=== PATIENT | male | born 1940 | race Caucasian/White ===

== ENCOUNTER 2017-01-21 07:22 | Day surgery (SDC) | payer MEDICARE, OTHER ==
[~2017-01-21 07:22] MED LIST: Ketorolac 30 MG/ML SDV ONE; Lactated Ringers 1,000 ML IV SCH; Lidocaine 2% 5 ML SDV ONE; Midazolam 1 MG/ML 2 ML SDV ONE; Ondansetron 4 MG/2 ML SDV ONE; Propofol 200 MG/20 ML SDV ONE; ceFAZolin 2 GM in Premix Bag 1 BAG IV SCH; diphenhydrAMINE 50 MG/ML SDV ONE; fentaNYL 100 MCG/2 ML SDV ONE
[2017-01-21] MEDS ORDERED: ceFAZolin 1 GM Vial ONE (07:24)
[2017-01-21] MEDS ORDERED: Bupivacaine 0.5% 10 ML SDV ONE (07:24)
[2017-01-21] MEDS ORDERED: fentaNYL 100 MCG/2 ML SDV IVPUSH PRN (07:39)
--- NOTE | 2017-01-21 07:48 | PCM.PREANE ---
Preanesthetic Assessment - Anesthesia/Transfusion/Family Hx Anesthesia History: Prior Anesthesia Without Reaction Family History of Anesthesia Reaction: No Transfusion History: No Prior Transfusion(s) - Review of Systems General: No Symptoms Pulmonary: No Symptoms Cardiovascular: No Symptoms Gastrointestinal: No Symptoms Neurological: No Symptoms Other: Reports: None - Physical Assessment NPO Status Date: 01/20/17 O2 Sat by Pulse Oximetry: 96 Respiratory Rate: 16 Vital Signs: Last Vital Signs Temp 36.3 C 01/21/17 07:45 Pulse 100 01/21/17 07:45 Resp 16 01/21/17 07:45 BP 147/86 H 01/21/17 07:45 Pulse Ox 96 01/21/17 07:45 Height: 1.78 m Weight: 112.945 kg ASA Class: 2 Mental Status: Alert & Oriented x3 Airway Class: Mallampati = 2 Dentition: Reports: Dentures ROM/Head Extension: Full Lungs: Clear to Auscultation, Normal Respiratory Effort Cardiovascular: Regular Rate, Regular Rhythm - Allergies Allergies/Adverse Reactions: Allergies Allergy/AdvReac Type Severity Reaction Status Date / Time No Known Allergies Allergy Verified 01/18/17 13:55 - Anesthesia Plan Pre-Op Medication Ordered: None - Acknowledgements Anesthesia Type Planned: General Anesthesia Pt an Appropriate Candidate for the Planned Anesthesia: Yes Alternatives and Risks of Anesthesia Discussed w Pt/Guardian: Yes Pt/Guardian Understands and Agrees with Anesthesia Plan: Yes Additional Comments: PMH: [place], htn, psoriasis, obesity PreAnesthesia Questionnaire HEENT History: Reports: Hard of Hearing Other HEENT History: top and bottom denture, has hearing aids but does not wear them Cardiovascular History: Reports: Hypertension Gastrointestinal History: Reports: Other (See Below) Other Gastrointestinal History: occasional heartburn Genitourinary History: Reports: BPH Endocrine/Metabolic History: Reports: Obesity/BMI 30+, Other (See Below) Other Endocrine/Metabolic History: "borderline diabetic" Dermatologic History: Reports: Psoriasis - Past Surgical History Head Surgeries/Procedures: Reports: None HEENT Surgical History: Reports: Adenoidectomy, Tonsillectomy GI Surgical History: Reports: Appendectomy, Colonoscopy Musculoskeletal Surgical History: Reports: Other (See Below) Other Musculoskeletal Surgeries/Procedures:: traumatic amputation rt index finger - SUBSTANCE USE Smoking Status *Q: Former Smoker Recreational Drug Use History: No - HOME MEDS Home Medications: Home Meds Aspirin 1 tab PO DAILY 01/18/17 [History] Clobetasol Propionate 1 applic TOP ASDIRECTED PRN 01/18/17 [History] Clobetasol Propionate 1 applic TOP ASDIRECTED PRN 01/18/17 [History] Cranberry Fruit Extract [Cranberry] 200 ml PO BID 01/18/17 [History] Cyanocobalamin (Vitamin B-12) [Vitamin B-12] 1,000 mcg PO DAILY 01/18/17 [ History] Dutasteride [Avodart] 0.5 mg PO DAILY 01/18/17 [History] Losartan [Cozaar] 100 mg PO BEDTIME 01/18/17 [History] Reubens-3S/DHA/Epa/Fish Oil [Reubens-3 Fish Oil 1,000 mg Sfgl] 1 tab PO DAILY [History] Vitamin E Mixed [Vitamin E] 1 tab PO DAILY 01/18/17 [History] amLODIPine [Norvasc] 10 mg PO BEDTIME 01/18/17 [History] - CURRENT (IN HOUSE) MEDS Current Meds: Current Medications Fentanyl (Sublimaze) 50 mcg IVPUSH Q5M PRN PRN Reason: Pain (severe 7-10) Stop: 01/21/17 11:00 Cefazolin Sodium/Dextrose 2 gm (/ Premix) 50 mls @ 100 mls/hr IV ONETIME SHIRIN Lactated Ringer's (Ringers, Lactated) 1,000 mls @ 125 mls/hr IV ASDIRECTED SHIRIN Discontinued Medications Bupivacaine HCl (Sensorcaine-Mpf 0.5%) Confirm Administered Dose 10 ml .ROUTE .STK-MED ONE Stop: 01/21/17 07:25 Cefazolin Sodium (Ancef) Confirm Administered Dose 1 gm .ROUTE .STK-MED ONE Stop: 01/21/17 07:25 Diphenhydramine HCl (Benadryl) Confirm Administered Dose 50 mg .ROUTE .STK-MED ONE Stop: 01/21/17 07:09 Fentanyl (Sublimaze) Confirm Administered Dose 100 mcg .ROUTE .STK-MED ONE Stop: 01/21/17 07:07 Ketorolac Tromethamine (Toradol) Confirm Administered Dose 30 mg .ROUTE .STK- MED ONE Stop: 01/21/17 07:09 Lidocaine (Xylocaine-Mpf 2%) Confirm Administered Dose 5 ml .ROUTE .STK-MED ONE Stop: 01/21/17 07:09 Midazolam HCl (Versed 1 Mg/Ml) Confirm Administered Dose 2 mg .ROUTE .STK-MED ONE Stop: 01/21/17 07:07 Ondansetron HCl (Zofran) Confirm Administered Dose 4 mg .ROUTE .STK-MED ONE Stop: 01/21/17 07:09 Propofol (Diprivan 20 Ml) Confirm Administered Dose 200 mg .ROUTE .STK-MED ONE Stop: 01/21/17 07:07
[2017-01-21] MEDS ORDERED: Rocuronium 10 MG/ML 10 ML Syringe ONE (07:49)
[2017-01-21] MEDS ORDERED: Neostigmine Methylsulfate 1 MG/ML 5 ML Syringe ONE (07:49)
[2017-01-21] MEDS ORDERED: ePHEDrine 50 MG/ML SDV ONE (08:18)
[2017-01-21] MEDS ORDERED: Succinylcholine/Normal Saline 200 MG/10 ML Syringe ONE (08:21)
[2017-01-21] MEDS ORDERED: Ondansetron 4 MG/2 ML SDV IVPUSH PRN (09:22)
[2017-01-21] MEDS ORDERED: Acetaminophen/HYDROcodone 325-5 MG Tab PO PRN (09:22)
[2017-01-21] MEDS ORDERED: Morphine 10 MG/ML Syringe IVPUSH PRN (09:22)
[2017-01-21] MEDS ORDERED: Diltiazem 25 MG/5 ML SDV IVPUSH ONE (09:27)
[2017-01-21] MEDS ORDERED: Lactated Ringers 1,000 ML IV SCH (09:30)
--- NOTE | 2017-01-21 09:30 | PCM.OPNOTE ---
- General Post-Op/Procedure Note Date of Surgery/Procedure: 01/21/17 Operative Procedure(s): Repair incarcerated ventral/umbilical hernia with 8.4 cm Ventralex mesh Pre Op Diagnosis: Incarcerated ventral hernia Post-Op Diagnosis: Incarcerated ventral/umbilical hernia Anesthesia Technique: General ET Tube (ASA II) Primary Surgeon: Zac Ignacio Fluid Replacement, Intraop: 1,000 EBL in mLs: 5 Condition: Good Free Text/Narrative:: Dictation [id number] CPT CODE 07375/[id number]
--- NOTE | 2017-01-21 09:41 | OR ---
SURGEON: Zac Ignacio M.D. DATE OF PROCEDURE: 01/21/2017 OPERATION PERFORMED: Repair of incarcerated ventral hernia with 8.4 cm Ventralex mesh. ANESTHESIA: General endotracheal. ASA CLASSIFICATION: II. PREOPERATIVE DIAGNOSIS: Incarcerated umbilical/ventral hernia. POSTOPERATIVE DIAGNOSIS: Incarcerated umbilical/ventral hernia. ESTIMATED BLOOD LOSS: 5 mL. INTRAOPERATIVE FLUID REPLACEMENT: 1000 mL of crystalloid. DESCRIPTION OF PROCEDURE: The patient was taken to the operating room and placed on the operating table in the supine position. Time-out was called for appropriate identification of the patient and procedure. Thigh-high TEDs and sequential compression boots were placed. Following satisfactory attainment of general endotracheal anesthesia, the abdomen was prepped with DuraPrep solution. Sterile drapes were applied. Skin incision was marked out extending through the midline directly through the umbilicus. Using electrocautery, the incision was deepened into the subcutaneous space. There was a very large ventral defect. Once the adhesions were cleared from this area for at least 2 cm circumferentially, an 8.4 cm Ventralex mesh was brought to the operating table. This was soaked in 1% Ancef solution. The mesh was then placed in an underlay technique and secured to the overlying fascia with interrupted horizontal mattress 0 Ethibond sutures. All sutures were placed under direct vision and held with hemostats. After all other sutures had been placed, they were secured. The patient was given a Valsalva maneuver to 40 cm of water and the repair was solid. The wound was inspected for hemostasis and small bleeding sites were electrocoagulated. The wound was again irrigated with 1% Ancef solution. All fluid was aspirated. I was able to reapproximate the fascia over the mesh with running 0 Vicryl. The subcutaneous tissue was reapproximated with running 3-0 Vicryl. The skin was closed with subcuticular 4-0 Monocryl, reinforced with Steri-Strips. The wound was dressed with a sterile Tegaderm pad. Sponge, needle, and instrument counts were all correct. The patient tolerated the procedure well. Following emergence from anesthesia and extubation, he was taken to recovery room in stable condition. YOSELYN / MICHAEL /[id number]
--- NOTE | 2017-01-21 10:09 | PCM.SN ---
- Free Text/Narrative Note: developed afib with rapid response 130s in OR, asymptomatic. No hx of prior afib or episodes of palpitations. No documentation of NSR this am but rate was 100 and reg to ausc. Cardizem given in PACU with decrease in rate from 135 to 85-90. Consulted wire rope sales representative. Sent for TTE at 11am. Cardiology will see hum after echo to determine admission vs discharge, and cardioversion vs meds.
--- NOTE | 2017-01-21 10:14 | PCM.POSTAN ---
POST ANESTHESIA ASSESSMENT - MENTAL STATUS Mental Status: Alert, Oriented - RESPIRATORY Respiratory Status: Respiratory Rate WNL, Airway Patent, O2 Saturation Stable - CARDIOVASCULAR CV Status: Elevated Pulse Rate (see post op simple note for management of afib) - GASTROINTESTINAL GI Status: No Symptoms - POST OP HYDRATION Hydration Status: Adequate & Stable
--- NOTE | 2017-01-21 10:39 | PCM48HPAN ---
Post Anesthesia Note - EVALUATION WITHIN 48HRS OF ANESTHETIC Vital Signs in Normal Range: Yes Patient Participated in Evaluation: Yes Respiratory Function Stable: Yes Airway Patent: Yes Cardiovascular Function Stable: No (rate controlled afib, leaving PACU for echo , then will see environmental health technician laxmi) Hydration Status Stable: Yes Pain Control Satisfactory: Yes Nausea and Vomiting Control Satisfactory: Yes Mental Status Recovered: Yes
[2017-01-21 13:09] LABS: CHLORIDE,CL 106 mmol/L (98-110); SODIUM,NA 141 mmol/L (136-146)
--- NOTE | 2017-01-21 14:35 | PCM.SN ---
- Free Text/Narrative Note: Patient is impatient to be released to home. Awaiting Dr. 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 He will then be discharged to home.
--- NOTE | 2017-01-21 14:36 | PCM48HPAN ---
Post Anesthesia Note - EVALUATION WITHIN 48HRS OF ANESTHETIC Vital Signs in Normal Range: Yes Patient Participated in Evaluation: Yes Respiratory Function Stable: Yes Airway Patent: Yes Cardiovascular Function Stable: Yes Hydration Status Stable: Yes Pain Control Satisfactory: Yes Nausea and Vomiting Control Satisfactory: Yes Mental Status Recovered: Yes - COMMENTS/OBSERVATIONS Free Text/Narrative:: Dr. Kenney (graphics coordinator ) did see patient.
--- NOTE | 2017-01-21 16:32 | CONS ---
DATE OF CONSULTATION: DATE OF : 1940 PRIMARY CARE PHYSICIAN: Vadim Romero M.D. REASON FOR CONSULTATION: Atrial fibrillation. HISTORY OF PRESENT ILLNESS: This is a 76-year-old male with a history of former smoker as well as hypertension, hyperlipidemia, who presented to the hospital at this time for an umbilical hernia. There was no EKG done prior to this surgery. However, when the surgery was completed and he was in the recovery room, he was found to have an atrial fibrillation, Cardizem was given, and the heart rate seemed to be better controlled. It is still unclear if he was in atrial fibrillation prior to the surgery. However, when he was in the recovery room, when he was in the atrial fibrillation, he did not feel heart raising, abnormal heart beat, shortness of breath, chest pain or dizziness, he feels about the same. He never had a history of a heart attack, CAD, or atrial fibrillation. He is a lundy. He did not have any shortness of breath, leg swelling, orthopnea, or PND. No upcoming surgery. PAST MEDICAL HISTORY: Including hypertension, hyperlipidemia. SOCIAL HISTORY: Occasionally drinks. No drugs. Former smoker. FAMILY HISTORY: No family history of CAD. ALLERGIES: No known drug allergies. PHYSICAL EXAMINATION: VITAL SIGNS: Blood pressure is 145/72, heart rate of 70 to 80, O2 saturation 96% on room air, respirations 17. HEENT: No pallor. No jaundice. No JVD. HEART: Normal S1, S2, totally irregular. LUNGS: Clear. ABDOMEN: Soft, nontender. Bowel sounds are present. No hepatosplenomegaly. LABORATORY DATA: CBC showed WBC 13, hematocrit 42, and platelets 202. Sodium 141, potassium 3.6, chloride 106, bicarb 26, BUN 18, creatinine 1.0, glucose 122, troponin is less than 0.1. EKG shows atrial fibrillation, heart rate of 83, and QRS duration 94. ASSESSMENT AND PLAN: This is a 76-year-old male with a history of hypertension, former smoker, postop day 0 for umbilical hernia repair, was found to have an atrial fibrillation, unknown onset. He is not symptomatic for atrial fibrillation as well. It is still unclear that an atrial fibrillation started recently and we did not have any EKG that confirmed he was sinus prior to the surgery and I would probably start him on anticoagulation because his Cornelio Vasc score is 2 at least and I talked to the surgeon that anticoagulation can be started tomorrow. I will also give him the Toprol-XL to control his heart rate. Echocardiogram was ordered and I will see him again in the next 2 weeks. Currently, he seems to be okay and he denies symptoms of shortness of breath, leg swelling, orthopnea, or PND. He is not in heart failure on my exam and I will see him in the clinic in 2 weeks. SONIDO RODRIGUEZ /[id number]
--- NOTE | 2017-01-26 13:36 | ECHO ---
EXAM DATE: 01/21/17 PATIENT'S AGE: 76 The echocardiogram report can be seen in this patient's EMR (Electronic Medical Record) in the Reports section. The report has also been scanned into PACs. YANCY
== END 2017-01-21 14:40 | disposition home or self-care (01) ==
LOC: MW.SDS 07:22
PROVIDERS: ATTEND Surgery
DX: K43.6 Other and unspecified ventral hernia with obstruction, without gangrene (principal); I10 Essential (primary) hypertension; E78.5 Hyperlipidemia, unspecified; E66.9 Obesity, unspecified; L40.9 Psoriasis, unspecified; I48.91 Unspecified atrial fibrillation; Z88.8 Allergy status to other drugs, medicaments and biological substances; Z87.891 Personal history of nicotine dependence; Z68.30 Body mass index [BMI] 30.0-30.9, adult; Z90.89 Acquired absence of other organs; Z90.49 Acquired absence of other specified parts of digestive tract; Z79.82 Long term (current) use of aspirin
CPT/HCPCS: 36415; 49561; 49568; 80053; 84484; 85027; 93005; 93306; J0690; J1200; J1885; J2250; J2405; J3010; J7120; 00832; C1781; J2704

== ENCOUNTER 2018-04-20 09:41 | Observation (INO) | payer MEDICARE, OTHER ==
[2018-04-20] MEDS ORDERED: Sodium Chloride 0.9% 10 ML Syringe FLUSH PRN (10:11)
[2018-04-20] MEDS ORDERED: Sodium Chloride 0.9% 2.5 ML Syringe FLUSH PRN (10:11)
--- NOTE | 2018-04-20 10:25 | EDM.PDOC ---
ED HPI GENERAL MEDICAL PROBLEM - General Chief Complaint: Respiratory Problem Stated Complaint: SHORTNESS OF BREATH Time Seen by Provider: 04/20/18 10:23 Source of Information: Reports: Patient - History of Present Illness INITIAL COMMENTS - FREE TEXT/NARRATIVE: HISTORY AND PHYSICAL: History of present illness: Patient is a 78-year-old male here with complaint of shortness of breath. He states he was seeing his Dr. Rascon this morning for SOB, was found to have fluid in the left lung and sent to the ED to have it drained. He states he feels like he can't get full breath in. He denies chest pain, cough, fevers, chills, nausea, vomiting, abdominal pain. History of atrial fibrillation with RVR. He states he no longer takes his plavix. Hasn't take his blood pressure medication in a couple of days. Oxygen saturation around 92-94% on room air. Review of systems: As per history of present illness and below otherwise all systems reviewed and negative. Past medical history: As per history of present illness and as reviewed below otherwise noncontributory. Surgical history: As per history of present illness and as reviewed below otherwise noncontributory. Social history: No reported history of drug or alcohol abuse. Family history: As per history of present illness and as reviewed below otherwise noncontributory. Physical exam: General: Patient sitting comfortably in no acute distress and nontoxic appearing HEENT: Atraumatic, normocephalic, pupils reactive, negative for conjunctival pallor or scleral icterus, mucous membranes moist, throat clear, neck supple, nontender, trachea midline. No meningeal signs. Lungs: Diminished throughout all lung eldridge, chest nontender. Heart: S1S2, irregular, negative for clicks, rubs, or overt murmur. Abdomen: Soft, nondistended, nontender. Negative for masses or hepatosplenomegaly. Negative for costovertebral tenderness. No rigidity, rebound , guarding. Pelvis: Stable nontender. Genitourinary: Deferred. Rectal: Deferred. Extremities: Atraumatic, negative for cords or calf pain. Neurovascular unremarkable. Neuro: Awake, alert, oriented. Cranial nerves II through XII unremarkable. Cerebellum unremarkable. Motor and sensory unremarkable throughout. Exam nonfocal. Notes: Diagnostics: CBC, CMP, EKG EKG shows atrial fibrillation with RVR CXR from [place] shows "confluent opacification of the lower left hemithorax suggesting the presence of a moderate to large left effusion with possible underlying left lower lobe pneumonia vs atelectasis." Therapeutics: Cardizem 25mg IV 1g Rocephin IV 250mg Azithromycin IV Prescriptions: Impression: Dyspnea, left pulmonary effusion, pneumonia, atrial fibrillation with RVR Plan: Discussed with Dr. Mcdonald, patient will be admitted to observation on telemetry and IV antibiotics. Definitive disposition and diagnosis as appropriate pending reevaluation and review of above. - Related Data Allergies Allergy/AdvReac Type Severity Reaction Status Date / Time No Known Allergies Allergy Verified 04/20/18 09:57 Home Meds: Home Meds . [Unable to Verify Home Med List] 04/20/18 [History] Past Medical History HEENT History: Reports: Hard of Hearing Other HEENT History: top and bottom denture, has hearing aids but does not wear them Cardiovascular History: Reports: Hypertension Gastrointestinal History: Reports: Other (See Below) Other Gastrointestinal History: occasional heartburn Genitourinary History: Reports: BPH Endocrine/Metabolic History: Reports: Obesity/BMI 30+, Other (See Below) Other Endocrine/Metabolic History: "borderline diabetic" Dermatologic History: Reports: Psoriasis - Past Surgical History Head Surgeries/Procedures: Reports: None HEENT Surgical History: Reports: Adenoidectomy, Tonsillectomy GI Surgical History: Reports: Appendectomy, Colonoscopy Musculoskeletal Surgical History: Reports: Other (See Below) Other Musculoskeletal Surgeries/Procedures:: traumatic amputation rt index finger Social & Family History - Family History Family Medical History: Noncontributory - Tobacco Use Smoking Status *Q: Never Smoker - Recreational Drug Use Recreational Drug Use: No ED ROS GENERAL - Review of Systems Review Of Systems: ROS reveals no pertinent complaints other than HPI. ED EXAM, GENERAL - Physical Exam Exam: See Below (see dictation) Course - Vital Signs Last Recorded V/S: Last Vital Signs Temp 98.2 F 04/20/18 09:51 Pulse 77 04/20/18 11:15 Resp 18 04/20/18 11:15 BP 145/88 H 04/20/18 11:15 Pulse Ox 98 04/20/18 11:15 - Orders/Labs/Meds Orders: Active Orders 24 hr Category Date Time Status Cardiac Monitoring [RC] . DIRECTED Care 04/20/18 10:11 Active EKG Documentation Completion [RC] STAT Care 04/20/18 10:12 Active Sodium Chloride 0.9% [Saline Flush] Med 04/20/18 10:11 Active 10 ml FLUSH ASDIRECTED PRN Sodium Chloride 0.9% [Saline Flush] Med 04/20/18 10:11 Active 2.5 ml FLUSH ASDIRECTED PRN Saline Lock Insert [OM.PC] Stat Oth 04/20/18 10:11 Ordered Medication Orders Sodium Chloride (Saline Flush) 10 ml FLUSH ASDIRECTED PRN PRN Reason: Keep Vein Open Last Admin: 04/20/18 10:42 Dose: 10 ml Sodium Chloride (Saline Flush) 2.5 ml FLUSH ASDIRECTED PRN PRN Reason: Keep Vein Open Last Admin: 04/20/18 10:42 Dose: 2.5 ml Labs: Laboratory Tests 04/20/18 04/20/18 04/20/18 Range/Units 10:30 10:30 10:30 WBC 11.22 H (4.0-11.0) K/uL RBC 5.13 (4.50-5.90) M/uL Hgb 15.8 (13.0-17.0) g/dL Hct 47.3 (38.0-50.0) % MCV 92.2 (80.0-98.0) fL MCH 30.8 (27.0-32.0) pg MCHC 33.4 (31.0-37.0) g/dL RDW Std Deviation 44.9 (28.0-62.0) fl RDW Coeff of Yara 14 (11.0-15.0) % Plt Count 221 (150-400) K/uL MPV 10.70 (7.40-12.00) fL Neut % (Auto) 82.9 H (48.0-80.0) % Lymph % (Auto) 7.8 L (16.0-40.0) % Tyrrell % (Auto) 8.2 (0.0-15.0) % Eos % (Auto) 0.8 (0.0-7.0) % Baso % (Auto) 0.3 (0.0-1.5) % Neut # (Auto) 9.3 H (1.4-5.7) K/uL Lymph # (Auto) 0.9 (0.6-2.4) K/uL Tyrrell # (Auto) 0.9 H (0.0-0.8) K/uL Eos # (Auto) 0.1 (0.0-0.7) K/uL Baso # (Auto) 0.0 (0.0-0.1) K/uL INR 1.07 Sodium 139 (136-148) mmol/L Potassium 3.5 (3.5-5.1) mmol/L Chloride 102 (98-107) mmol/L Carbon Dioxide 29.2 (21.0-32.0) mmol/L BUN 27 H (7.0-18.0) mg/dL Creatinine 1.1 (0.8-1.3) mg/dL Est Cr Clr Drug Dosing 60.85 mL/min Estimated GFR (MDRD) > 60.0 ml/min Glucose 132 H (74-106) mg/dL Calcium 9.4 (8.5-10.1) mg/dL Total Bilirubin 0.9 (0.2-1.0) mg/dL AST 36 (15-37) IU/L ALT 25 (14-63) IU/L Alkaline Phosphatase 119 H (46-116) U/L Total Protein 6.8 (6.4-8.2) g/dL Albumin 3.0 L (3.4-5.0) g/dL Globulin 3.8 (2.6-4.0) g/dL Albumin/Globulin Ratio 0.8 L (0.9-1.6) Meds: Medications Generic Name Dose Route Start Last Admin Trade Name Freq PRN Reason Stop Dose Admin Sodium Chloride 10 ml 04/20/18 10:11 04/20/18 10:42 Saline Flush FLUSH 10 ml ASDIRECTED PRN Administration Keep Vein Open Sodium Chloride 2.5 ml 04/20/18 10:11 04/20/18 10:42 Saline Flush FLUSH 2.5 ml ASDIRECTED PRN Administration Keep Vein Open Discontinued Medications Generic Name Dose Route Start Last Admin Trade Name Freq PRN Reason Stop Dose Admin Diltiazem HCl 25 mg 04/20/18 10:33 04/20/18 10:42 Diltiazem IVPUSH 04/20/18 10:34 25 mg ONETIME ONE Administration Departure - Departure Time of Disposition: 11:44 Disposition: Refer to Observation Condition: Good Clinical Impression: Pneumonia, Atrial fibrillation, Dyspnea - Discharge Information Referrals: PCP,Unknown [Primary Care Provider] - Forms: ED Department Discharge - My Orders Last 24 Hours: My Active Orders 04/20/18 10:11 Cardiac Monitoring [RC] . DIRECTED Sodium Chloride 0.9% [Saline Flush] 10 ml FLUSH ASDIRECTED PRN Sodium Chloride 0.9% [Saline Flush] 2.5 ml FLUSH ASDIRECTED PRN Saline Lock Insert [OM.PC] Stat 04/20/18 10:12 EKG Documentation Completion [RC] STAT - Assessment/Plan Last 24 Hours: My Active Orders 04/20/18 10:11 Cardiac Monitoring [RC] . DIRECTED Sodium Chloride 0.9% [Saline Flush] 10 ml FLUSH ASDIRECTED PRN Sodium Chloride 0.9% [Saline Flush] 2.5 ml FLUSH ASDIRECTED PRN Saline Lock Insert [OM.PC] Stat 04/20/18 10:12 EKG Documentation Completion [RC] STAT
[2018-04-20] MEDS ORDERED: Diltiazem 25 MG/5 ML SDV IVPUSH ONE (10:33)
[2018-04-20 11:17] LABS: CHLORIDE,CL 102 mmol/L (98-107); SODIUM,NA 139 mmol/L (136-148)
[2018-04-20] MEDS ORDERED: cefTRIAXone 1 GM in Premix Bag 1 BAG IV ONE (11:42)
[2018-04-20] MEDS ORDERED: Azithromycin 250 MG in Sodium Chloride 0.9% 250 ML IV ONE ×2 (11:42→13:45)
--- NOTE | 2018-04-20 13:05 | PCM.HP ---
H&P History of Present Illness - General Date of Service: 04/20/18 Admit Problem/Dx: Admission Diagnosis/Problem Admission Diagnosis/Problem Pneumonia Source of Information: Patient, Old Records ([facility] clinic notes) History Limitations: Reports: No Limitations - History of Present Illness Initial Comments - Free Text/Narative: This 78 year old male with pmh of HTN, afib, hyperlipidemia, and prediabetes presented to the ED from [facility] with concerns of shortness of breath and not feeling well. CXR was obtained at the clinic, which revealed a new moderate to large pleural effusion and possible pneumonia and new cardiomegaly. He reports he has been short of breath and not feeling well with subjective fevers for a good 2 weeks. Denies productive cough. Denies palpitations or chest pain. He reports some sinus congestion and malaise. He reports he stopped taking his BP medications because he started feeling worse the last few days. He denies abdominal pain or urinary concerns and no neurological complaints. He denies leg swelling or history of CHF. He reports he used to smoke and drink heavily, but quit 30+ years ago. Rare alcohol use now and no tobacco use. 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 In the ED, mild leukocytosis noted at 11,220. BUN 27 and Cr 1.1. EKG revealed afib RVR, he was given Diltiazem 25 mg IV, HR returned to 70s and BP lowerd to 140s SBP. It was 170/110s on arrival to ED. He is on 2 L NC sating 98%. He was given Azithromycin and Rocephin for CAP and admitted observation for CAP and shortness of breath with pleural effusion. PCP, Dr Vadim Romero. - Related Data Allergies/Adverse Reactions: Allergies Allergy/AdvReac Type Severity Reaction Status Date / Time No Known Allergies Allergy Verified 04/20/18 09:57 Home Medications: Home Meds Albuterol [Proventil Neb Soln] 1 dose INH ASDIRECTED 04/20/18 [History] Aspirin [Aspirin EC] 325 mg PO DAILY 04/20/18 [History] Betamethasone Dipropionate [Diprosone 0.05% Crm] 1 dose TOP ASDIRECTED 04/20/18 [History] Cyanocobalamin (Vitamin B-12) [Cyanocobalamin] 1,000 mcg PO DAILY 04/20/18 [ History] Dutasteride [Avodart] 0.5 cap PO DAILY 04/20/18 [History] Losartan [Cozaar] 100 mg PO DAILY 04/20/18 [History] Multivit #34/FA/Nadh/Ubiquinon [Mebolic Tablet] 1 tab PO DAILY 04/20/18 [History ] Lovely-3 Fatty Acids [Lovely-3] 1 tab PO DAILY 04/20/18 [History] Tamsulosin [Flomax] 0.4 mg PO DAILY 04/20/18 [History] Zoster Vaccine Live [Zostavax] 1 dose SUBCUT ASDIRECTED 04/20/18 [History] amLODIPine [Norvasc] 10 mg PO DAILY 04/20/18 [History] Past Medical History HEENT History: Reports: Hard of Hearing Other HEENT History: top and bottom denture, has hearing aids but does not wear them Cardiovascular History: Reports: Afib, High Cholesterol, Hypertension. Denies: Blood Clots/VTE/DVT, OR, Stents Respiratory History: Reports: None. Denies: Asthma, COPD Gastrointestinal History: Reports: Other (See Below). Denies: GERD, GI Bleed Other Gastrointestinal History: occasional heartburn Genitourinary History: Reports: BPH Musculoskeletal History: Reports: None Neurological History: Reports: None. Denies: CVA, TIA Psychiatric History: Reports: None Endocrine/Metabolic History: Reports: Obesity/BMI 30+, Other (See Below) Other Endocrine/Metabolic History: "borderline diabetic" Hematologic History: Reports: Anticoagulation Therapy (has tried three in the past for Afib, but can not tolerate any. Takes ASA daily) Dermatologic History: Reports: Psoriasis - Past Surgical History Head Surgeries/Procedures: Reports: None HEENT Surgical History: Reports: Adenoidectomy, Tonsillectomy GI Surgical History: Reports: Appendectomy, Colonoscopy Musculoskeletal Surgical History: Reports: Other (See Below) Other Musculoskeletal Surgeries/Procedures:: traumatic amputation rt index finger Social & Family History - Family History Family Medical History: Noncontributory - Tobacco Use Smoking Status *Q: Former Smoker Tobacco Use Comment: quit 30+ years ago - Caffeine Use Caffeine Use: Reports: Coffee - Alcohol Use Alcohol Use History: No Alcohol Use Frequency: Rarely - Recreational Drug Use Recreational Drug Use: No - Living Situation & Occupation Living situation: Reports: Occupation: Retired (has [email or web address] and [employer]) H&P Review of Systems - Review of Systems: Review Of Systems: See Below General: Reports: Fever (subjective at home, never actually measured), Fatigue HEENT: Reports: Sinus Congestion. Denies: Ear Pain, Hearing Changes, Visual Changes Pulmonary: Reports: Shortness of Breath, Cough. Denies: Pleuritic Chest Pain, Sputum Cardiovascular: Reports: Dyspnea on Exertion. Denies: Chest Pain, Palpitations , Edema Gastrointestinal: Reports: No Symptoms. Denies: Abdominal Pain, Black Stool, Bloody Stool, Nausea, Vomiting Genitourinary: Reports: No Symptoms. Denies: Dysuria, Frequency, Burning Musculoskeletal: Reports: No Symptoms Skin: Reports: No Symptoms Psychiatric: Reports: No Symptoms Neurological: Reports: No Symptoms Hematologic/Lymphatic: Reports: No Symptoms Immunologic: Reports: No Symptoms Exam - Exam Exam: See Below - Vital Signs Vital Signs: Last Vital Signs Temp 98.2 F 04/20/18 09:51 Pulse 77 04/20/18 11:15 Resp 18 04/20/18 11:15 BP 145/88 H 04/20/18 11:15 Pulse Ox 98 04/20/18 11:15 Weight: 114.804 kg - Exam General: Alert, Oriented, Cooperative HEENT: Conjunctiva Clear, Mucosa Moist & [place], Posterior Pharynx Clear Neck: Supple, Trachea Midline Lungs: Decreased Breath Sounds (L base). No: Normal Respiratory Effort ( dyspneic with speech), Wheezing Cardiovascular: Regular Rate, Normal S1, Normal S2, Irregular Rhythm. No: Tachycardia, Systolic Murmur GI/Abdominal Exam: Normal Bowel Sounds, Soft, Non-Tender, Other (obese abdomen limits assessment) Back Exam: Normal Inspection, Full Range of Motion Extremities: Normal Inspection, Normal Range of Motion, Non-Tender, No Pedal Edema Neurological: Cranial Nerves Intact Neuro Extensive - Mental Status: Alert, Oriented x3 Neuro Extensive - Motor, Sensory, Reflexes: CN II-XII Intact, Normal Gait Psychiatric: Alert, Normal Affect, Normal Mood - Patient Data Lab Results Last 24 hrs: Laboratory Results - last 24 hr 04/20/18 04/20/18 04/20/18 Range/Units 10:30 10:30 10:30 WBC 11.22 H (4.0-11.0) K/uL RBC 5.13 (4.50-5.90) M/uL Hgb 15.8 (13.0-17.0) g/dL Hct 47.3 (38.0-50.0) % MCV 92.2 (80.0-98.0) fL MCH 30.8 (27.0-32.0) pg MCHC 33.4 (31.0-37.0) g/dL RDW Std Deviation 44.9 (28.0-62.0) fl RDW Coeff of Yara 14 (11.0-15.0) % Plt Count 221 (150-400) K/uL MPV 10.70 (7.40-12.00) fL Neut % (Auto) 82.9 H (48.0-80.0) % Lymph % (Auto) 7.8 L (16.0-40.0) % [place] % (Auto) 8.2 (0.0-15.0) % Eos % (Auto) 0.8 (0.0-7.0) % Baso % (Auto) 0.3 (0.0-1.5) % Neut # (Auto) 9.3 H (1.4-5.7) K/uL Lymph # (Auto) 0.9 (0.6-2.4) K/uL [place] # (Auto) 0.9 H (0.0-0.8) K/uL Eos # (Auto) 0.1 (0.0-0.7) K/uL Baso # (Auto) 0.0 (0.0-0.1) K/uL INR 1.07 Sodium 139 (136-148) mmol/L Potassium 3.5 (3.5-5.1) mmol/L Chloride 102 (98-107) mmol/L Carbon Dioxide 29.2 (21.0-32.0) mmol/L BUN 27 H (7.0-18.0) mg/dL Creatinine 1.1 (0.8-1.3) mg/dL Est Cr Clr Drug Dosing 60.85 mL/min Estimated GFR (MDRD) > 60.0 ml/min Glucose 132 H (74-106) mg/dL Calcium 9.4 (8.5-10.1) mg/dL Magnesium (1.8-2.4) mg/dL Total Bilirubin 0.9 (0.2-1.0) mg/dL AST 36 (15-37) IU/L ALT 25 (14-63) IU/L Alkaline Phosphatase 119 H (46-116) U/L Total Protein 6.8 (6.4-8.2) g/dL Albumin 3.0 L (3.4-5.0) g/dL Globulin 3.8 (2.6-4.0) g/dL Albumin/Globulin Ratio 0.8 L (0.9-1.6) 04/20/18 Range/Units 10:30 WBC (4.0-11.0) K/uL RBC (4.50-5.90) M/uL Hgb (13.0-17.0) g/dL Hct (38.0-50.0) % MCV (80.0-98.0) fL MCH (27.0-32.0) pg MCHC (31.0-37.0) g/dL RDW Std Deviation (28.0-62.0) fl RDW Coeff of Yara (11.0-15.0) % Plt Count (150-400) K/uL MPV (7.40-12.00) fL Neut % (Auto) (48.0-80.0) % Lymph % (Auto) (16.0-40.0) % [place] % (Auto) (0.0-15.0) % Eos % (Auto) (0.0-7.0) % Baso % (Auto) (0.0-1.5) % Neut # (Auto) (1.4-5.7) K/uL Lymph # (Auto) (0.6-2.4) K/uL [place] # (Auto) (0.0-0.8) K/uL Eos # (Auto) (0.0-0.7) K/uL Baso # (Auto) (0.0-0.1) K/uL INR Sodium (136-148) mmol/L Potassium (3.5-5.1) mmol/L Chloride (98-107) mmol/L Carbon Dioxide (21.0-32.0) mmol/L BUN (7.0-18.0) mg/dL Creatinine (0.8-1.3) mg/dL Est Cr Clr Drug Dosing mL/min Estimated GFR (MDRD) ml/min Glucose (74-106) mg/dL Calcium (8.5-10.1) mg/dL Magnesium 2.0 (1.8-2.4) mg/dL Total Bilirubin (0.2-1.0) mg/dL AST (15-37) IU/L ALT (14-63) IU/L Alkaline Phosphatase (46-116) U/L Total Protein (6.4-8.2) g/dL Albumin (3.4-5.0) g/dL Globulin (2.6-4.0) g/dL Albumin/Globulin Ratio (0.9-1.6) Result Diagrams: 04/20/18 10:30 04/20/18 10:30 EKG INTERPRETATION EKG Date: 04/20/18 Rhythm: A-Fib Rate (Beats/Min): 110 P-Wave: Absent QRS: Normal ST-T: Normal QT: Normal - Problem List (1) Pneumonia SNOMED Code(s): 136227805 ICD Code: J18.9 - PNEUMONIA, UNSPECIFIED ORGANISM Status: Acute Current Visit: Yes Qualifiers: Pneumonia type: due to unspecified organism Laterality: left Lung location: lower lobe of lung Qualified Code(s): J18.1 - Lobar pneumonia, unspecified organism (2) Atrial fibrillation SNOMED Code(s): 33270614 ICD Code: I48.91 - UNSPECIFIED ATRIAL FIBRILLATION Status: Chronic Current Visit: Yes Qualifiers: Atrial fibrillation type: persistent Qualified Code(s): I48.1 - Persistent atrial fibrillation (3) Dyspnea SNOMED Code(s): 489464988 ICD Code: R06.00 - DYSPNEA, UNSPECIFIED Status: Chronic Current Visit: Yes Qualifiers: Dyspnea type: shortness of breath Qualified Code(s): R06.02 - Shortness of breath; R06.00 - Dyspnea, unspecified; R06.01 - Orthopnea (4) Pleural effusion SNOMED Code(s): 85314056 ICD Code: J90 - PLEURAL EFFUSION, NOT ELSEWHERE CLASSIFIED Status: Acute Current Visit: Yes (5) Cardiomegaly SNOMED Code(s): 9928243 ICD Code: I51.7 - CARDIOMEGALY Status: Acute Current Visit: Yes (6) HTN (hypertension) SNOMED Code(s): 91568496 ICD Code: I10 - ESSENTIAL (PRIMARY) HYPERTENSION Status: Chronic Current Visit: Yes Qualifiers: Hypertension type: essential hypertension Qualified Code(s): I10 - Essential (primary) hypertension (7) Pre-diabetes SNOMED Code(s): 825870995 ICD Code: R73.03 - PREDIABETES Status: Chronic Current Visit: Yes (8) Hyperlipidemia SNOMED Code(s): 31578154 ICD Code: E78.5 - HYPERLIPIDEMIA, UNSPECIFIED Status: Chronic Current Visit: Yes (9) BPH (benign prostatic hyperplasia) SNOMED Code(s): 399755238 ICD Code: N40.0 - BENIGN PROSTATIC HYPERPLASIA WITHOUT LOWER URINRY TRACT SYMP Status: Chronic Current Visit: Yes Problem List Initiated/Reviewed/Updated: Yes Orders Last 24hrs: Active Orders 24 hr Category Date Time Status Admission Status [Patient Status] [ADT] Stat ADT 04/20/18 11:45 Active Cardiac Monitoring [RC] . DIRECTED Care 04/20/18 10:11 Active Sodium Chloride 0.9% [Saline Flush] Med 04/20/18 10:11 Active 10 ml FLUSH ASDIRECTED PRN Sodium Chloride 0.9% [Saline Flush] Med 04/20/18 10:11 Active 2.5 ml FLUSH ASDIRECTED PRN Saline Lock Insert [OM.PC] Stat Oth 04/20/18 10:11 Ordered Medication Orders Sodium Chloride (Saline Flush) 10 ml FLUSH ASDIRECTED PRN PRN Reason: Keep Vein Open Last Admin: 04/20/18 10:42 Dose: 10 ml Sodium Chloride (Saline Flush) 2.5 ml FLUSH ASDIRECTED PRN PRN Reason: Keep Vein Open Last Admin: 04/20/18 10:42 Dose: 2.5 ml Assessment/Plan Comment:: This 78 year old male admitted with shortness of breath associated with pneumonia, new pleural effusion and A fib with RVR 1. CAP: Will treat with Azithromycin and Rocephin. Obtain sputum as possible. Will also obtain CT to further evaluate pneumonia and pleural effusion. Repeat CBC in am. 2. Pleural effusion: New, patient denies history of CHF or pleural effusion before. New cardiomegaly noted on CXR. Will give Lasix 40 mg IV. Monitor daily weights and strict I/O. Obtain ECHO as well. Last ECHO with Dr Kenney appears to be 01/2017. LV EF 55-60%, Normal L ventricular systolic function, R ventricular systolic pressure normal. Mild aortic, mitral and tricuspid valve regurgitation. Mildly dilated left atrium. 3. Afib: Rate controlled now. Continue Metoprolol XL 50 mg daily. Follow[address] with Dr Damian. Reports having tried 3 different anticoagulants and cont tolerate them, so he takes ASA 325 mg daily. Monitor on telemetry. replace K+. Magnesium 2.0 today. Recheck in am. 4. HTN: Has been non complaint with medications since he has not been feeling well. Will restart Amlodipine, Losartan. BUN/ Cr at baseline since last labwork in clinic in 2018. VTE prophylaxis: Heparin Q12h. Dispo: 1-2 days pending improvement.
[2018-04-20] MEDS ORDERED: Acetaminophen 325 MG Tab PO PRN (13:10)
[2018-04-20] MEDS ORDERED: Ondansetron 4 MG Tab.DIS PO PRN (13:10)
[2018-04-20] MEDS ORDERED: Docusate Sodium 100 MG Cap PO PRN (13:10)
[2018-04-20] MEDS ORDERED: Furosemide 40 MG/4 ML VIAL IVPUSH ONE (13:15)
[2018-04-20] MEDS ORDERED: BETAMETHASONE DIPROPIONATE 0.05% TOP SCH (13:15)
[2018-04-20] MEDS: Heparin Sodium 5,000 Units/ML Vial SUBCUT SCH (13:44)
[2018-04-20] MEDS: Potassium Chloride 20 MEQ Tab.ER PO SCH ×2 (13:44→16:06)
[2018-04-20] MEDS ORDERED: Metoprolol Succinate 50 MG Tab.ER PO SCH (13:45)
[2018-04-20] MEDS ORDERED: Albuterol 0.083% 2.5 MG/3 ML Neb Soln INH PRN (14:00)
--- NOTE | 2018-04-20 16:14 | CT ---
INDICATION: Pleural effusion TECHNIQUE: CT chest without contrast. COMPARISON: None available FINDINGS: Cardiovascular structures: Mild cardiomegaly. Aneurysmally dilated ascending aorta measuring up to 4.7 cm. Atherosclerotic changes. Mediastinum and melony: A borderline subcarinal lymph node. Evaluation for left hilar adenopathy is limited. Lungs: Consolidation or atelectasis of the majority of the left lower lobe and lingula. Ill-defined ground-glass opacity in the superior aspect of the left upper lobe could be related to mild compressive changes. Focal narrowing of the central inferior segment left lower lobe bronchus. Pleura and pericardium: A moderate left pleural effusion. A small pericardial effusion. Chest wall and axilla: No mass or adenopathy. Upper abdomen: Mildly lobulated hepatic contour, nonspecific. A small curvilinear low attenuation area in the lateral left hepatic lobe could be related to focal periportal fat. A 3.4 cm exophytic left renal cyst. Perirenal changes, nonspecific. Bones: Mild focal cortical irregularity of the anterior left 5th rib, of unclear chronicity. A mild to moderate T3 compression deformity and mild T2 and T4 height loss. Fused thoracic osteophytosis compatible with DISH. An irregular sclerotic area in the T12 vertebral body, nonspecific. Degenerative changes in the glenohumeral joints, right greater than left. IMPRESSION: A moderate left pleural effusion. Consolidation or atelectasis of the majority of the left lower lobe and the lingula. Correlate clinically for pneumonia. Cardiomegaly. A small pericardial effusion. Aneurysmally dilated ascending aorta measuring 4.7 cm. Upper thoracic spine compression deformities could be chronic. Mild focal cortical irregularity in the anterior left 5th rib is of unclear chronicity. Correlate for focal tenderness. Dictated by Gautam Queen MD @ 04/20/2018 4:11:55 PM Please note that all CT scans at this facility use dose modulation, iterative reconstruction, and/or weight-based dosing when appropriate to reduce radiation dose to as low as reasonably achievable. Dictated by: Gautam Queen MD @ 04/20/2018 16:14:27 (Electronically Signed)
[2018-04-21] MEDS: Heparin Sodium 5,000 Units/ML Vial SUBCUT SCH (00:24)
[2018-04-21] MEDS ORDERED: Metoprolol Succinate 25 MG Tab.ER PO SCH (09:00)
[2018-04-21] MEDS ORDERED: Dutasteride 0.5 MG Cap PO SCH (09:00)
[2018-04-21] MEDS ORDERED: Cyanocobalamin (Vitamin B12) 500 MCG Tab PO SCH (09:00)
[2018-04-21] MEDS ORDERED: Azithromycin 250 MG Tab PO SCH (09:00)
[2018-04-21] MEDS ORDERED: Aspirin 325 MG Tab.EC PO SCH (09:00)
[2018-04-21] MEDS ORDERED: OMEGA PO SCH (09:00)
[2018-04-21] MEDS ORDERED: Losartan 50 MG Tab PO SCH (09:00)
[2018-04-21] MEDS ORDERED: Tamsulosin 0.4 MG Cap.ER PO SCH (09:00)
[2018-04-21] MEDS ORDERED: amLODIPine 5 MG Tab PO SCH (09:00)
[2018-04-21] MEDS ORDERED: FATTY ACIDS PO SCH (09:00)
[2018-04-21] MEDS ORDERED: [UNRECOGNIZED DRUG - MIXTURE] PO SCH (09:00)
[2018-04-21] MEDS ORDERED: cefTRIAXone 1 GM in Premix Bag 1 BAG IV SCH (10:00)
--- NOTE | 2018-04-21 10:40 | PCM.DCSUM1 ---
Addendum entered and electronically signed by Geovanna Mart NP 04/21/18 12:47 : Discharge Summary - Hospital Course Free Text/Narrative:: Nursing notified Dr Mcdonald and myself regarding patient HR elevating to 130s. Patient was getting dressed to go home. I evaluated patient at this time. he was noted to be short of breath. he verbally reports he is "OK". I discussed assessment with Dr Mcdonald and with Apolinar. We recommended Apolinar stay another night due to tachycardia and shortness of breath and the risk of cardiac event. He declined this and is insisting on going home. 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 He reports he has nobody to help with this at home and he must get home. "I will just come back if I feel worse." I again urged him to stay for further observation, but he again declines and insists he is fine to go home. Brief History: This 78 year old male with pmh of HTN, afib, hyperlipidemia, and prediabetes presented to the ED from [facility] with concerns of shortness of breath and not feeling well. CXR was obtained at the clinic, which revealed a new moderate to large pleural effusion and possible pneumonia and new cardiomegaly. He reports he has been short of breath and not feeling well with subjective fevers for a good 2 weeks. Denies productive cough. Denies palpitations or chest pain. He reports some sinus congestion and malaise. He reports he stopped taking his BP medications because he started feeling worse the last few days. He denies abdominal pain or urinary concerns and no neurological complaints. He denies leg swelling or history of CHF. He reports he used to smoke and drink heavily, but quit 30+ years ago. Rare alcohol use now and no tobacco use. 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 In the ED, mild leukocytosis noted at 11,220. BUN 27 and Cr 1.1. EKG revealed afib RVR, he was given Diltiazem 25 mg IV, HR returned to 70s and BP lowerd to 140s SBP. It was 170/110s on arrival to ED. He is on 2 L NC sating 98%. He was given Azithromycin and Rocephin for CAP and admitted observation for CAP and shortness of breath with pleural effusion. PCP, Dr Vadim Romero. Diagnosis: Stroke: No - Discharge Data Discharge Date: 04/21/18 Discharge Disposition: Home, Self-Care 01 Condition: Good - Discharge Diagnosis/Problem(s) (1) Pneumonia SNOMED Code(s): 349323355 ICD Code: J18.9 - PNEUMONIA, UNSPECIFIED ORGANISM Status: Acute Current Visit: Yes Qualifiers: Pneumonia type: due to unspecified organism Laterality: left Lung location: lower lobe of lung Qualified Code(s): J18.1 - Lobar pneumonia, unspecified organism (2) Atrial fibrillation SNOMED Code(s): 90428361 ICD Code: I48.91 - UNSPECIFIED ATRIAL FIBRILLATION Status: Chronic Current Visit: Yes Qualifiers: Atrial fibrillation type: persistent Qualified Code(s): I48.1 - Persistent atrial fibrillation (3) Dyspnea SNOMED Code(s): 620653695 ICD Code: R06.00 - DYSPNEA, UNSPECIFIED Status: Chronic Current Visit: Yes Qualifiers: Dyspnea type: shortness of breath Qualified Code(s): R06.02 - Shortness of breath; R06.00 - Dyspnea, unspecified; R06.01 - Orthopnea (4) Pleural effusion SNOMED Code(s): 65292454 ICD Code: J90 - PLEURAL EFFUSION, NOT ELSEWHERE CLASSIFIED Status: Acute Current Visit: Yes (5) Cardiomegaly SNOMED Code(s): 4154726 ICD Code: I51.7 - CARDIOMEGALY Status: Acute Current Visit: Yes (6) HTN (hypertension) SNOMED Code(s): 32499870 ICD Code: I10 - ESSENTIAL (PRIMARY) HYPERTENSION Status: Chronic Current Visit: Yes Qualifiers: Hypertension type: essential hypertension Qualified Code(s): I10 - Essential (primary) hypertension (7) Pre-diabetes SNOMED Code(s): 981686924 ICD Code: R73.03 - PREDIABETES Status: Chronic Current Visit: Yes (8) Hyperlipidemia SNOMED Code(s): 43743887 ICD Code: E78.5 - HYPERLIPIDEMIA, UNSPECIFIED Status: Chronic Current Visit: Yes (9) BPH (benign prostatic hyperplasia) SNOMED Code(s): 923884596 ICD Code: N40.0 - BENIGN PROSTATIC HYPERPLASIA WITHOUT LOWER URINRY TRACT SYMP Status: Chronic Current Visit: Yes - Patient Instructions Diet: Heart Healthy Diet, Low Sodium Activity: As Tolerated Showering/Bathing: May Shower Notify Provider of: Fever, Increased Pain, Swelling and Redness, Drainage, Nausea and/or Vomiting - Discharge Plan *PRESCRIPTION DRUG MONITORING PROGRAM REVIEWED*: Not Applicable *COPY OF PRESCRIPTION DRUG MONITORING REPORT IN PATIENT ELVIRA: Not Applicable Prescriptions/Med Rec: Azithromycin [Zithromax] 500 mg PO Q24H #6 tablet Home Medications: Home Meds Albuterol [Proventil Neb Soln] 1 dose INH QID 04/20/18 [History] Aspirin 325 mg PO DAILY 04/20/18 [History] Dutasteride [Avodart] 0.5 cap PO DAILY 04/20/18 [History] Losartan [Cozaar] 100 mg PO DAILY 04/20/18 [History] Metoprolol Succinate 25 mg PO DAILY 04/20/18 [History] Tamsulosin [Flomax] 0.4 mg PO DAILY 04/20/18 [History] amLODIPine [Norvasc] 10 mg PO DAILY 04/20/18 [History] amLODIPine [Norvasc] 10 mg PO DAILY 04/20/18 [History] Azithromycin [Zithromax] 500 mg PO Q24H #6 tablet 04/21/18 [Rx] Oxygen Therapy Mode: Room Air Patient Handouts: Thoracentesis, Care After, Azithromycin tablets, Pleural Effusion, Community-Acquired Pneumonia, Adult, [id number] Referrals: Vadim Romero MD [Physician] - 05/03/18 10:00 am - Discharge Summary/Plan Comment DC Time >30 min.: No - Patient Data Vitals - Most Recent: Last Vital Signs Temp 98.1 F 04/21/18 11:04 Pulse 94 04/21/18 11:04 Resp 18 04/21/18 11:04 BP 174/94 H 04/21/18 11:04 Pulse Ox 93 L 04/21/18 11:04 Weight - Most Recent: 248.7 kg I&O - Last 24 hours: Intake & Output 04/20/18 04/21/18 04/21/18 22:59 06:59 14:59 Intake Total 450 1500 50 Output Total 1150 1650 Balance -700 -150 50 Lab Results - Last 24 hrs: Laboratory Results - last 24 hr 04/21/18 04/21/18 Range/Units 05:45 05:45 WBC 9.92 (4.0-11.0) K/uL RBC 4.78 (4.50-5.90) M/uL Hgb 14.8 (13.0-17.0) g/dL Hct 44.7 (38.0-50.0) % MCV 93.5 (80.0-98.0) fL MCH 31.0 (27.0-32.0) pg MCHC 33.1 (31.0-37.0) g/dL RDW Std Deviation 47.1 (28.0-62.0) fl RDW Coeff of Yara 14 (11.0-15.0) % Plt Count 228 (150-400) K/uL MPV 11.00 (7.40-12.00) fL Neut % (Auto) 74.4 (48.0-80.0) % Lymph % (Auto) 12.7 L (16.0-40.0) % [place] % (Auto) 10.0 (0.0-15.0) % Eos % (Auto) 2.6 (0.0-7.0) % Baso % (Auto) 0.3 (0.0-1.5) % Neut # (Auto) 7.4 H (1.4-5.7) K/uL Lymph # (Auto) 1.3 (0.6-2.4) K/uL [place] # (Auto) 1.0 H (0.0-0.8) K/uL Eos # (Auto) 0.3 (0.0-0.7) K/uL Baso # (Auto) 0.0 (0.0-0.1) K/uL Nucleated RBC % 0.0 /100WBC Nucleated RBCs # 0 K/uL Sodium 142 (136-148) mmol/L Potassium 3.8 (3.5-5.1) mmol/L Chloride 104 (98-107) mmol/L Carbon Dioxide 30.3 (21.0-32.0) mmol/L BUN 24 H (7.0-18.0) mg/dL Creatinine 1.2 (0.8-1.3) mg/dL Est Cr Clr Drug Dosing 54.07 mL/min Estimated GFR (MDRD) 58.9 ml/min Glucose 161 H (74-106) mg/dL Calcium 8.9 (8.5-10.1) mg/dL Magnesium 1.9 (1.8-2.4) mg/dL Med Orders - Current: Current Medications Acetaminophen (Tylenol) 650 mg PO Q4H PRN PRN Reason: Pain (mild 1-3) Albuterol (Proventil Neb Soln) 1.25 mg INH Q4H PRN PRN Reason: Shortness of Breath Amlodipine Besylate (Norvasc) 10 mg PO DAILY COUNTS INCLUDE 234 BEDS AT [facility] Last Admin: 04/21/18 08:37 Dose: 10 mg Aspirin (Ecotrin) 325 mg PO DAILY COUNTS INCLUDE 234 BEDS AT [facility] Last Admin: 04/21/18 08:37 Dose: 325 mg Azithromycin (Zithromax) 500 mg PO Q24H COUNTS INCLUDE 234 BEDS AT [facility] Last Admin: 04/21/18 08:37 Dose: 500 mg Cyanocobalamin (Vitamin B12) 1,000 mcg PO DAILY COUNTS INCLUDE 234 BEDS AT [facility] Last Admin: 04/21/18 08:38 Dose: 1,000 mcg Docusate Sodium (Colace) 100 mg PO BID PRN PRN Reason: Constipation Dutasteride (Avodart) 0.5 mg PO DAILY COUNTS INCLUDE 234 BEDS AT [facility] Last Admin: 04/21/18 08:36 Dose: 0.5 mg Heparin Sodium (Porcine) (Heparin Sodium) 5,000 units SUBCUT Q12H COUNTS INCLUDE 234 BEDS AT [facility] Last Admin: 04/21/18 00:24 Dose: 5,000 units Ceftriaxone Sodium/Dextrose 1 (gm/ Premix) 50 mls @ 100 mls/hr IV Q24H COUNTS INCLUDE 234 BEDS AT [facility] Last Admin: 04/21/18 09:16 Dose: 100 mls/hr Losartan Potassium (Cozaar) 100 mg PO DAILY COUNTS INCLUDE 234 BEDS AT [facility] Last Admin: 04/21/18 08:36 Dose: 100 mg Metoprolol Succinate (Toprol Xl) 25 mg PO DAILY COUNTS INCLUDE 234 BEDS AT [facility] Last Admin: 04/21/18 08:38 Dose: 25 mg Ondansetron HCl (Zofran Odt) 4 mg PO Q4H PRN PRN Reason: nausea, able to take PO Betamethasone Dipropionate 0.05% Cream 1 each TOP ASDIRECTED COUNTS INCLUDE 234 BEDS AT [facility] Multivit #34/Fa/Nadh /Ubiquinon [Mebolic Tablet] 1 each PO DAILY COUNTS INCLUDE 234 BEDS AT THE [facility] Last Admin: 04/21/18 08:39 Dose: Not Given Marcellus-3 Fatty Acids (100mg Tab.Chew) 1 each PO DAILY COUNTS INCLUDE 234 BEDS AT [facility] Last Admin: 04/21/18 08:40 Dose: Not Given Sodium Chloride (Saline Flush) 10 ml FLUSH ASDIRECTED PRN PRN Reason: Keep Vein Open Last Admin: 04/20/18 10:42 Dose: 10 ml Sodium Chloride (Saline Flush) 2.5 ml FLUSH ASDIRECTED PRN PRN Reason: Keep Vein Open Last Admin: 04/20/18 10:42 Dose: 2.5 ml Tamsulosin HCl (Flomax) 0.4 mg PO DAILY COUNTS INCLUDE 234 BEDS AT [facility] Last Admin: 04/21/18 08:36 Dose: 0.4 mg Discontinued Medications Diltiazem HCl (Diltiazem) 25 mg IVPUSH ONETIME ONE Stop: 04/20/18 10:34 Last Admin: 04/20/18 10:42 Dose: 25 mg Furosemide (Lasix) 40 mg IVPUSH NOW ONE Stop: 04/20/18 13:16 Last Admin: 04/20/18 13:44 Dose: 40 mg Azithromycin 250 mg/ Sodium (Chloride) 250 mls @ 250 mls/hr IV ONETIME ONE Stop: 04/20/18 12:41 Last Admin: 04/20/18 13:46 Dose: Not Given Ceftriaxone Sodium/Dextrose 1 (gm/ Premix) 50 mls @ 100 mls/hr IV ONETIME ONE Stop: 04/20/18 12:11 Last Admin: 04/20/18 11:51 Dose: 100 mls/hr Azithromycin 250 mg/ Sodium (Chloride) 250 mls @ 250 mls/hr IV ONETIME ONE Stop: 04/20/18 14:44 Last Admin: 04/20/18 14:18 Dose: 250 mls/hr Metoprolol Succinate (Toprol Xl) 50 mg PO DAILY COUNTS INCLUDE 234 BEDS AT [facility] Last Admin: 04/20/18 13:51 Dose: 50 mg Potassium Chloride (Klor-Con M20) 40 meq PO BID@1400,1700 COUNTS INCLUDE 234 BEDS AT [facility] Stop: 04/20/18 17:01 Last Admin: 04/20/18 16:06 Dose: 40 meq Original Note: Discharge Summary - Hospital Course Brief History: This 78 year old male with pmh of HTN, afib, hyperlipidemia, and prediabetes presented to the ED from [facility] with concerns of shortness of breath and not feeling well. CXR was obtained at the clinic, which revealed a new moderate to large pleural effusion and possible pneumonia and new cardiomegaly. He reports he has been short of breath and not feeling well with subjective fevers for a good 2 weeks. Denies productive cough. Denies palpitations or chest pain. He reports some sinus congestion and malaise. He reports he stopped taking his BP medications because he started feeling worse the last few days. He denies abdominal pain or urinary concerns and no neurological complaints. He denies leg swelling or history of CHF. He reports he used to smoke and drink heavily, but quit 30+ years ago. Rare alcohol use now and no tobacco use. 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 In the ED, mild leukocytosis noted at 11,220. BUN 27 and Cr 1.1. EKG revealed afib RVR, he was given Diltiazem 25 mg IV, HR returned to 70s and BP lowerd to 140s SBP. It was 170/110s on arrival to ED. He is on 2 L NC sating 98%. He was given Azithromycin and Rocephin for CAP and admitted observation for CAP and shortness of breath with pleural effusion. PCP, Dr Vadim Romero. Diagnosis: Stroke: No - Discharge Data Discharge Date: 04/21/18 Discharge Disposition: Home, Self-Care 01 Condition: Good - Discharge Diagnosis/Problem(s) (1) Pneumonia SNOMED Code(s): 180496892 ICD Code: J18.9 - PNEUMONIA, UNSPECIFIED ORGANISM Status: Acute Current Visit: Yes Qualifiers: Pneumonia type: due to unspecified organism Laterality: left Lung location: lower lobe of lung Qualified Code(s): J18.1 - Lobar pneumonia, unspecified organism (2) Atrial fibrillation SNOMED Code(s): 97404933 ICD Code: I48.91 - UNSPECIFIED ATRIAL FIBRILLATION Status: Chronic Current Visit: Yes Qualifiers: Atrial fibrillation type: persistent Qualified Code(s): I48.1 - Persistent atrial fibrillation (3) Dyspnea SNOMED Code(s): 078668439 ICD Code: R06.00 - DYSPNEA, UNSPECIFIED Status: Chronic Current Visit: Yes Qualifiers: Dyspnea type: shortness of breath Qualified Code(s): R06.02 - Shortness of breath; R06.00 - Dyspnea, unspecified; R06.01 - Orthopnea (4) Pleural effusion SNOMED Code(s): 49468472 ICD Code: J90 - PLEURAL EFFUSION, NOT ELSEWHERE CLASSIFIED Status: Acute Current Visit: Yes (5) Cardiomegaly SNOMED Code(s): 1726140 ICD Code: I51.7 - CARDIOMEGALY Status: Acute Current Visit: Yes (6) HTN (hypertension) SNOMED Code(s): 44383564 ICD Code: I10 - ESSENTIAL (PRIMARY) HYPERTENSION Status: Chronic Current Visit: Yes Qualifiers: Hypertension type: essential hypertension Qualified Code(s): I10 - Essential (primary) hypertension (7) Pre-diabetes SNOMED Code(s): 379094579 ICD Code: R73.03 - PREDIABETES Status: Chronic Current Visit: Yes (8) Hyperlipidemia SNOMED Code(s): 23641539 ICD Code: E78.5 - HYPERLIPIDEMIA, UNSPECIFIED Status: Chronic Current Visit: Yes (9) BPH (benign prostatic hyperplasia) SNOMED Code(s): 529522006 ICD Code: N40.0 - BENIGN PROSTATIC HYPERPLASIA WITHOUT LOWER URINRY TRACT SYMP Status: Chronic Current Visit: Yes - Patient Instructions Diet: Heart Healthy Diet, Low Sodium Activity: As Tolerated Showering/Bathing: May Shower Notify Provider of: Fever, Increased Pain, Swelling and Redness, Drainage, Nausea and/or Vomiting - Discharge Plan *PRESCRIPTION DRUG MONITORING PROGRAM REVIEWED*: Not Applicable *COPY OF PRESCRIPTION DRUG MONITORING REPORT IN PATIENT ELVIRA: Not Applicable Prescriptions/Med Rec: Azithromycin [Zithromax] 500 mg PO Q24H #6 tablet Home Medications: Home Meds Albuterol [Proventil Neb Soln] 1 dose INH QID 04/20/18 [History] Aspirin 325 mg PO DAILY 04/20/18 [History] Dutasteride [Avodart] 0.5 cap PO DAILY 04/20/18 [History] Losartan [Cozaar] 100 mg PO DAILY 04/20/18 [History] Metoprolol Succinate 25 mg PO DAILY 04/20/18 [History] Tamsulosin [Flomax] 0.4 mg PO DAILY 04/20/18 [History] amLODIPine [Norvasc] 10 mg PO DAILY 04/20/18 [History] amLODIPine [Norvasc] 10 mg PO DAILY 04/20/18 [History] Azithromycin [Zithromax] 500 mg PO Q24H #6 tablet 04/21/18 [Rx] Oxygen Therapy Mode: Room Air Patient Handouts: Pleural Effusion, Community-Acquired Pneumonia, Adult, Easy- to-Read Referrals: Vadim Romero MD [Physician] - 05/03/18 10:00 am - Discharge Summary/Plan Comment DC Time >30 min.: No Discharge Summary/Plan Comment: Discharge Diagnoses: CAP L Pleural effusion Persistent Afib HTN Obesity Pre-diabetes Apolinar was admitted secondary to shortness of breath and suspected CAP along with new L pleural effusion. He was given dose of Lasix as well as Rocephin and Azithromycin. He was not requiring oxygen, but feeling shortness of breath intermittently. ECHO is pending. Leukocytosis improved. He is feeling better today and asking to go home. He will be discharged home today. I will arrange for outpatient thoracentesis to L pleural effusion due to new cardiomegaly and history of smoking. All labwork and cytology ordered with thoracentesis for fluid analysis. He will be discharged home for 4 more days of Azithromycin for CAP. He is to return to ED or clinic if concerns should arise. He is to keep compliant with home medications for heart rate and HTN. He verbalized understanding. I did speak with Dr Romero regarding admission and need for thoracentesis. He will follow labwork. - General Info Date of Service: 04/21/18 Admission Dx/Problem (Free Text: Admission Diagnosis/Problem Admission Diagnosis/Problem Pneumonia Subjective Update: Asking to go home today. Feeling better, shortness of breath has improved. Not requiring oxygen. No chest pain. No other concerns. Functional Status: Reports: Pain Controlled, Tolerating Diet, Ambulating, Urinating - Review of Systems General: Reports: No Symptoms. Denies: Weakness, Fatigue, Malaise Pulmonary: Reports: No Symptoms. Denies: Shortness of Breath, Cough, Sputum Cardiovascular: Reports: No Symptoms. Denies: Chest Pain, Edema Gastrointestinal: Reports: No Symptoms. Denies: Abdominal Pain, Nausea, Vomiting Genitourinary: Reports: No Symptoms. Denies: Dysuria, Frequency, Burning Musculoskeletal: Reports: No Symptoms Skin: Reports: No Symptoms Neurological: Reports: No Symptoms Psychiatric: Reports: No Symptoms - Patient Data Vitals - Most Recent: Last Vital Signs Temp 97.5 F 04/21/18 10:38 Pulse 83 04/21/18 10:38 Resp 18 04/21/18 10:38 BP 147/98 H 04/21/18 10:38 Pulse Ox 92 L 04/21/18 10:38 Weight - Most Recent: 248.7 kg I&O - Last 24 hours: Intake & Output 04/20/18 04/21/18 04/21/18 22:59 06:59 14:59 Intake Total 450 1500 50 Output Total 1150 1650 Balance -700 -150 50 Lab Results - Last 24 hrs: Laboratory Results - last 24 hr 04/20/18 04/20/18 04/20/18 Range/Units 10:30 10:30 10:30 WBC 11.22 H (4.0-11.0) K/uL RBC 5.13 (4.50-5.90) M/uL Hgb 15.8 (13.0-17.0) g/dL Hct 47.3 (38.0-50.0) % MCV 92.2 (80.0-98.0) fL MCH 30.8 (27.0-32.0) pg MCHC 33.4 (31.0-37.0) g/dL RDW Std Deviation 44.9 (28.0-62.0) fl RDW Coeff of Yara 14 (11.0-15.0) % Plt Count 221 (150-400) K/uL MPV 10.70 (7.40-12.00) fL Neut % (Auto) 82.9 H (48.0-80.0) % Lymph % (Auto) 7.8 L (16.0-40.0) % [place] % (Auto) 8.2 (0.0-15.0) % Eos % (Auto) 0.8 (0.0-7.0) % Baso % (Auto) 0.3 (0.0-1.5) % Neut # (Auto) 9.3 H (1.4-5.7) K/uL Lymph # (Auto) 0.9 (0.6-2.4) K/uL [place] # (Auto) 0.9 H (0.0-0.8) K/uL Eos # (Auto) 0.1 (0.0-0.7) K/uL Baso # (Auto) 0.0 (0.0-0.1) K/uL Nucleated RBC % /100WBC Nucleated RBCs # K/uL INR 1.07 Sodium 139 (136-148) mmol/L Potassium 3.5 (3.5-5.1) mmol/L Chloride 102 (98-107) mmol/L Carbon Dioxide 29.2 (21.0-32.0) mmol/L BUN 27 H (7.0-18.0) mg/dL Creatinine 1.1 (0.8-1.3) mg/dL Est Cr Clr Drug Dosing 60.85 mL/min Estimated GFR (MDRD) > 60.0 ml/min Glucose 132 H (74-106) mg/dL Calcium 9.4 (8.5-10.1) mg/dL Magnesium (1.8-2.4) mg/dL Total Bilirubin 0.9 (0.2-1.0) mg/dL AST 36 (15-37) IU/L ALT 25 (14-63) IU/L Alkaline Phosphatase 119 H (46-116) U/L Total Protein 6.8 (6.4-8.2) g/dL Albumin 3.0 L (3.4-5.0) g/dL Globulin 3.8 (2.6-4.0) g/dL Albumin/Globulin Ratio 0.8 L (0.9-1.6) 04/20/18 04/21/18 04/21/18 Range/Units 10:30 05:45 05:45 WBC 9.92 (4.0-11.0) K/uL RBC 4.78 (4.50-5.90) M/uL Hgb 14.8 (13.0-17.0) g/dL Hct 44.7 (38.0-50.0) % MCV 93.5 (80.0-98.0) fL MCH 31.0 (27.0-32.0) pg MCHC 33.1 (31.0-37.0) g/dL RDW Std Deviation 47.1 (28.0-62.0) fl RDW Coeff of Yara 14 (11.0-15.0) % Plt Count 228 (150-400) K/uL MPV 11.00 (7.40-12.00) fL Neut % (Auto) 74.4 (48.0-80.0) % Lymph % (Auto) 12.7 L (16.0-40.0) % [place] % (Auto) 10.0 (0.0-15.0) % Eos % (Auto) 2.6 (0.0-7.0) % Baso % (Auto) 0.3 (0.0-1.5) % Neut # (Auto) 7.4 H (1.4-5.7) K/uL Lymph # (Auto) 1.3 (0.6-2.4) K/uL [place] # (Auto) 1.0 H (0.0-0.8) K/uL Eos # (Auto) 0.3 (0.0-0.7) K/uL Baso # (Auto) 0.0 (0.0-0.1) K/uL Nucleated RBC % 0.0 /100WBC Nucleated RBCs # 0 K/uL INR Sodium 142 (136-148) mmol/L Potassium 3.8 (3.5-5.1) mmol/L Chloride 104 (98-107) mmol/L Carbon Dioxide 30.3 (21.0-32.0) mmol/L BUN 24 H (7.0-18.0) mg/dL Creatinine 1.2 (0.8-1.3) mg/dL Est Cr Clr Drug Dosing 54.07 mL/min Estimated GFR (MDRD) 58.9 ml/min Glucose 161 H (74-106) mg/dL Calcium 8.9 (8.5-10.1) mg/dL Magnesium 2.0 1.9 (1.8-2.4) mg/dL Total Bilirubin (0.2-1.0) mg/dL AST (15-37) IU/L ALT (14-63) IU/L Alkaline Phosphatase (46-116) U/L Total Protein (6.4-8.2) g/dL Albumin (3.4-5.0) g/dL Globulin (2.6-4.0) g/dL Albumin/Globulin Ratio (0.9-1.6) Med Orders - Current: Current Medications Acetaminophen (Tylenol) 650 mg PO Q4H PRN PRN Reason: Pain (mild 1-3) Albuterol (Proventil Neb Soln) 1.25 mg INH Q4H PRN PRN Reason: Shortness of Breath Amlodipine Besylate (Norvasc) 10 mg PO DAILY [facility] Last Admin: 04/21/18 08:37 Dose: 10 mg Aspirin (Ecotrin) 325 mg PO DAILY COUNTS INCLUDE 234 BEDS AT THE [facility] Last Admin: 04/21/18 08:37 Dose: 325 mg Azithromycin (Zithromax) 500 mg PO Q24H COUNTS INCLUDE 234 BEDS AT [facility] Last Admin: 04/21/18 08:37 Dose: 500 mg Cyanocobalamin (Vitamin B12) 1,000 mcg PO DAILY COUNTS INCLUDE 234 BEDS AT [facility] Last Admin: 04/21/18 08:38 Dose: 1,000 mcg Docusate Sodium (Colace) 100 mg PO BID PRN PRN Reason: Constipation Dutasteride (Avodart) 0.5 mg PO DAILY COUNTS INCLUDE 234 BEDS AT [facility] Last Admin: 04/21/18 08:36 Dose: 0.5 mg Heparin Sodium (Porcine) (Heparin Sodium) 5,000 units SUBCUT Q12H COUNTS INCLUDE 234 BEDS AT [facility] Last Admin: 04/21/18 00:24 Dose: 5,000 units Ceftriaxone Sodium/Dextrose 1 (gm/ Premix) 50 mls @ 100 mls/hr IV Q24H COUNTS INCLUDE 234 BEDS AT [facility] Last Admin: 04/21/18 09:16 Dose: 100 mls/hr Losartan Potassium (Cozaar) 100 mg PO DAILY COUNTS INCLUDE 234 BEDS AT [facility] Last Admin: 04/21/18 08:36 Dose: 100 mg Metoprolol Succinate (Toprol Xl) 25 mg PO DAILY COUNTS INCLUDE 234 BEDS AT [facility] Last Admin: 04/21/18 08:38 Dose: 25 mg Ondansetron HCl (Zofran Odt) 4 mg PO Q4H PRN PRN Reason: nausea, able to take PO Betamethasone Dipropionate 0.05% Cream 1 each TOP ASDIRECTED COUNTS INCLUDE 234 BEDS AT THE [facility] Multivit #34/Fa/Nadh /Ubiquinon [Mebolic Tablet] 1 each PO DAILY COUNTS INCLUDE 234 BEDS AT [facility] Last Admin: 04/21/18 08:39 Dose: Not Given Marcellus-3 Fatty Acids (100mg Tab.Chew) 1 each PO DAILY COUNTS INCLUDE 234 BEDS AT [facility] Last Admin: 04/21/18 08:40 Dose: Not Given Sodium Chloride (Saline Flush) 10 ml FLUSH ASDIRECTED PRN PRN Reason: Keep Vein Open Last Admin: 04/20/18 10:42 Dose: 10 ml Sodium Chloride (Saline Flush) 2.5 ml FLUSH ASDIRECTED PRN PRN Reason: Keep Vein Open Last Admin: 04/20/18 10:42 Dose: 2.5 ml Tamsulosin HCl (Flomax) 0.4 mg PO DAILY COUNTS INCLUDE 234 BEDS AT [facility] Last Admin: 04/21/18 08:36 Dose: 0.4 mg Discontinued Medications Diltiazem HCl (Diltiazem) 25 mg IVPUSH ONETIME ONE Stop: 04/20/18 10:34 Last Admin: 04/20/18 10:42 Dose: 25 mg Furosemide (Lasix) 40 mg IVPUSH NOW ONE Stop: 04/20/18 13:16 Last Admin: 04/20/18 13:44 Dose: 40 mg Azithromycin 250 mg/ Sodium (Chloride) 250 mls @ 250 mls/hr IV ONETIME ONE Stop: 04/20/18 12:41 Last Admin: 04/20/18 13:46 Dose: Not Given Ceftriaxone Sodium/Dextrose 1 (gm/ Premix) 50 mls @ 100 mls/hr IV ONETIME ONE Stop: 04/20/18 12:11 Last Admin: 04/20/18 11:51 Dose: 100 mls/hr Azithromycin 250 mg/ Sodium (Chloride) 250 mls @ 250 mls/hr IV ONETIME ONE Stop: 04/20/18 14:44 Last Admin: 04/20/18 14:18 Dose: 250 mls/hr Metoprolol Succinate (Toprol Xl) 50 mg PO DAILY COUNTS INCLUDE 234 BEDS AT THE [facility] Last Admin: 04/20/18 13:51 Dose: 50 mg Potassium Chloride (Klor-Con M20) 40 meq PO BID@1400,1700 COUNTS INCLUDE 234 BEDS AT THE [facility] Stop: 04/20/18 17:01 Last Admin: 04/20/18 16:06 Dose: 40 meq - Exam General: Reports: Alert, Oriented, Cooperative Neck: Reports: Supple Lungs: Reports: Decreased Breath Sounds (L lung base) Cardiovascular: Reports: Regular Rate, Regular Rhythm GI/Abdominal Exam: Normal Bowel Sounds, Soft, Non-Tender, No Organomegaly Back Exam: Reports: Normal Inspection, Full Range of Motion Extremities: Normal Inspection, Normal Range of Motion, Non-Tender, No Pedal Edema Neurological: Reports: No New Focal Deficit Psy/Mental Status: Reports: Alert, Normal Affect, Normal Mood
--- NOTE | 2018-04-25 14:05 | ECHO ---
EXAM DATE: 04/20/18 PATIENT'S AGE: 78 The echocardiogram report can be seen in this patient's EMR (Electronic Medical Record) in the Reports section. The report has also been scanned into PACs. YANCY
== END 2018-04-21 12:45 | disposition home or self-care (01) ==
LOC: MW.ED 09:41 → MW.MS 12:11
PROVIDERS: ADMIT Internal Medicine; ATTEND Internal Medicine
DX: J18.1 Lobar pneumonia, unspecified organism (principal); I48.1 Persistent atrial fibrillation; J90 Pleural effusion, not elsewhere classified; I10 Essential (primary) hypertension; I51.7 Cardiomegaly; R73.03 Prediabetes; E78.5 Hyperlipidemia, unspecified; N40.0 Benign prostatic hyperplasia without lower urinary tract symptoms; E66.9 Obesity, unspecified; Z68.45 Body mass index [BMI] 70 or greater, adult; Z79.01 Long term (current) use of anticoagulants; Z79.2 Long term (current) use of antibiotics; Z79.82 Long term (current) use of aspirin; Z79.899 Other long term (current) drug therapy
CPT/HCPCS: 36415; 71250; 80048; 80053; 83735; 85025; 85610; 93005; 93306; 96365; 96375; 99285; A9270; J0456; J0696; J1644; J1940; J3490; J7050; 96366; 96372; 96374; 99283; G0378

== ENCOUNTER 2019-04-10 12:49 | Emergency (ER) | payer MEDICARE, OTHER ==
[2019-04-10] MEDS ORDERED: Sodium Chloride 0.9% 2.5 ML Syringe FLUSH PRN (13:01)
[2019-04-10] MEDS ORDERED: Sodium Chloride 0.9% 10 ML Syringe FLUSH PRN (13:01)
[2019-04-10 13:26] LABS: BLOOD UREA NITROGEN,BUN 29 mg/dL (7.0-18.0); CARBON DIOXIDE,CO2 32.1 mmol/L (21.0-32.0); CHLORIDE,CL 101 mmol/L (98-107); GLUCOSE RANDOM 145 mg/dL (74-106); POTASSIUM,K 2.9 mmol/L (3.5-5.1); SODIUM,NA 143 mmol/L (136-148)
--- NOTE | 2019-04-10 14:32 | CR ---
Chest: Portable view of the chest was obtained. Comparison: Prior chest x-ray of 04/24/18. Heart is enlarged. Tortuous thoracic aorta is seen. Minimal blunting of the costophrenic angles are seen compatible with minimal pleural effusions. Pleural effusion has diminished from prior study with the left chest. Lungs otherwise are clear. Impression: 1. Minimal bilateral pleural effusions with cardiomegaly. Difficult to exclude pericardial effusion. 2. Nothing acute is otherwise seen on portable chest x-ray. Diagnostic code #3 This report was dictated in [place] Standard Time
[2019-04-10] MEDS ORDERED: Potassium Chloride 20 MEQ Tab.ER PO ONE (14:45)
--- NOTE | 2019-04-10 14:47 | EDM.PDOC ---
ED HPI GENERAL MEDICAL PROBLEM - General Chief Complaint: Chest Pain Stated Complaint: CHEST PAIN Time Seen by Provider: 04/10/19 13:33 Source of Information: Reports: Patient History Limitations: Reports: No Limitations - History of Present Illness INITIAL COMMENTS - FREE TEXT/NARRATIVE: 79-year-old male history of A. fib hypertension prediabetes to ER for abdominal pain and gas. Of note the patient told other providers that he had an episode of chest pain. But I asked him a few times and told me it was abdominal pain and bloading. Denied vomiting. [place] gas sensation. no diarrhea. Patient appears to be a reliable historian. Daughter at bedside helps corroborate the history. No chest pain no shortness of breath no leg swelling no other associated symptoms. left chest Pain Score (Numeric/FACES): 7 - Related Data Allergies Allergy/AdvReac Type Severity Reaction Status Date / Time No Known Allergies Allergy Verified 04/10/19 12:55 Home Meds: Home Meds Aspirin 325 mg PO DAILY 04/10/19 [History] Chlorthalidone 25 mg PO DAILY 04/10/19 [History] Diltiazem [Dilacor XR] 240 mg PO DAILY 04/10/19 [History] Doxazosin [Cardura] 8 mg PO DAILY 04/10/19 [History] Losartan [Cozaar] 100 mg PO DAILY 04/10/19 [History] Metoprolol Succinate 100 mg PO DAILY 04/10/19 [History] Potassium Chloride 10 meq PO DAILY 04/10/19 [History] Past Medical History HEENT History: Reports: Hard of Hearing Other HEENT History: top and bottom denture, has hearing aids but does not wear them Cardiovascular History: Reports: Afib, High Cholesterol, Hypertension Respiratory History: Reports: None Gastrointestinal History: Reports: Other (See Below) Other Gastrointestinal History: occasional heartburn Genitourinary History: Reports: BPH Musculoskeletal History: Reports: None Neurological History: Reports: None Psychiatric History: Reports: None Endocrine/Metabolic History: Reports: Obesity/BMI 30+, Other (See Below) Other Endocrine/Metabolic History: "borderline diabetic" Hematologic History: Reports: Anticoagulation Therapy Dermatologic History: Reports: Psoriasis - Infectious Disease History Infectious Disease History: Reports: Chicken Pox - Past Surgical History Head Surgeries/Procedures: Reports: None HEENT Surgical History: Reports: Adenoidectomy, Tonsillectomy GI Surgical History: Reports: Appendectomy, Colonoscopy Musculoskeletal Surgical History: Reports: Other (See Below) Other Musculoskeletal Surgeries/Procedures:: traumatic amputation rt index finger Social & Family History - Family History Family Medical History: Noncontributory - Tobacco Use Smoking Status *Q: Never Smoker - Caffeine Use Caffeine Use: Reports: Coffee - Recreational Drug Use Recreational Drug Use: No - Living Situation & Occupation Living situation: Reports: 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 Radial pulses equal DP pulses equal Exam Limited By: No Limitations General Appearance: Alert, WD/WN, No Apparent Distress Ears: Normal External Exam Nose: Normal Inspection Head: Atraumatic Respiratory/Chest: No Respiratory Distress, Lungs Clear, Normal Breath Sounds, No Accessory Muscle Use Cardiovascular: Normal Peripheral Pulses, Regular Rate, Rhythm, No Edema, No Gallop, No JVD, No Murmur, No Rub GI/Abdominal Exam: Soft, Non-Tender, No Organomegaly, No Distention (Male) Exam: Deferred Rectal (Males) Exam: Deferred Back Exam: Normal Inspection Extremities: Normal Inspection Neurological: Alert, Oriented, Normal Cognition Psychiatric: Normal Affect Skin Exam: Warm Lymphatic: No Adenopathy EKG INTERPRETATION Rhythm: A-Fib QRS: Normal ST-T: Normal QT: Normal Comparison: No Change Course - Vital Signs Last Recorded V/S: Last Vital Signs Temp 97 F 04/10/19 12:51 Pulse 87 04/10/19 12:51 Resp 24 H 04/10/19 12:51 BP 187/104 H 04/10/19 12:51 Pulse Ox 96 04/10/19 12:51 - Orders/Labs/Meds Orders: Active Orders 24 hr Category Date Time Status Cardiac Monitoring [RC] . DIRECTED Care 04/10/19 13:01 Active EKG Documentation Completion [RC] STAT Care 04/10/19 13:00 Active Sodium Chloride 0.9% [Saline Flush] Med 04/10/19 13:01 Active 10 ml FLUSH ASDIRECTED PRN Sodium Chloride 0.9% [Saline Flush] Med 04/10/19 13:01 Active 2.5 ml FLUSH ASDIRECTED PRN Saline Lock Insert [OM.PC] Stat Oth 04/10/19 13:01 Ordered Medication Orders Sodium Chloride (Saline Flush) 10 ml FLUSH ASDIRECTED PRN PRN Reason: Keep Vein Open Sodium Chloride (Saline Flush) 2.5 ml FLUSH ASDIRECTED PRN PRN Reason: Keep Vein Open Labs: Laboratory Tests 04/10/19 04/10/19 04/10/19 Range/Units 12:55 12:55 12:55 WBC 13.01 H (4.0-11.0) K/uL RBC 5.32 (4.50-5.90) M/uL Hgb 16.6 (13.0-17.0) g/dL Hct 50.7 H (38.0-50.0) % MCV 95.3 (80.0-98.0) fL MCH 31.2 (27.0-32.0) pg MCHC 32.7 (31.0-37.0) g/dL RDW Std Deviation 48.7 (28.0-62.0) fl RDW Coeff of Yara 14 (11.0-15.0) % Plt Count 214 (150-400) K/uL MPV 10.80 (7.40-12.00) fL Neut % (Auto) 81.0 H (48.0-80.0) % Lymph % (Auto) 9.5 L (16.0-40.0) % [place] % (Auto) 7.5 (0.0-15.0) % Eos % (Auto) 1.6 (0.0-7.0) % Baso % (Auto) 0.4 (0.0-1.5) % Neut # (Auto) 10.5 H (1.4-5.7) K/uL Lymph # (Auto) 1.2 (0.6-2.4) K/uL [place] # (Auto) 1.0 H (0.0-0.8) K/uL Eos # (Auto) 0.2 (0.0-0.7) K/uL Baso # (Auto) 0.1 (0.0-0.1) K/uL Nucleated RBC % 0.0 /100WBC Nucleated RBCs # 0 K/uL INR 1.05 Sodium 143 (136-148) mmol/L Potassium 2.9 L (3.5-5.1) mmol/L Chloride 101 (98-107) mmol/L Carbon Dioxide 32.1 H (21.0-32.0) mmol/L BUN 29 H (7.0-18.0) mg/dL Creatinine 1.2 (0.8-1.3) mg/dL Est Cr Clr Drug Dosing 53.23 mL/min Estimated GFR (MDRD) 58.7 ml/min Glucose 145 H (74-106) mg/dL Calcium 9.6 (8.5-10.1) mg/dL Total Bilirubin 0.6 (0.2-1.0) mg/dL AST 34 (15-37) IU/L ALT 31 (14-63) IU/L Alkaline Phosphatase 157 H (46-116) U/L Troponin I < 0.050 (0.000-0.056) ng/mL Total Protein 7.7 (6.4-8.2) g/dL Albumin 3.6 (3.4-5.0) g/dL Globulin 4.1 H (2.6-4.0) g/dL Albumin/Globulin Ratio 0.9 (0.9-1.6) 04/10/19 Range/Units 16:48 WBC (4.0-11.0) K/uL RBC (4.50-5.90) M/uL Hgb (13.0-17.0) g/dL Hct (38.0-50.0) % MCV (80.0-98.0) fL MCH (27.0-32.0) pg MCHC (31.0-37.0) g/dL RDW Std Deviation (28.0-62.0) fl RDW Coeff of Yara (11.0-15.0) % Plt Count (150-400) K/uL MPV (7.40-12.00) fL Neut % (Auto) (48.0-80.0) % Lymph % (Auto) (16.0-40.0) % [place] % (Auto) (0.0-15.0) % Eos % (Auto) (0.0-7.0) % Baso % (Auto) (0.0-1.5) % Neut # (Auto) (1.4-5.7) K/uL Lymph # (Auto) (0.6-2.4) K/uL [place] # (Auto) (0.0-0.8) K/uL Eos # (Auto) (0.0-0.7) K/uL Baso # (Auto) (0.0-0.1) K/uL Nucleated RBC % /100WBC Nucleated RBCs # K/uL INR Sodium (136-148) mmol/L Potassium (3.5-5.1) mmol/L Chloride (98-107) mmol/L Carbon Dioxide (21.0-32.0) mmol/L BUN (7.0-18.0) mg/dL Creatinine (0.8-1.3) mg/dL Est Cr Clr Drug Dosing mL/min Estimated GFR (MDRD) ml/min Glucose (74-106) mg/dL Calcium (8.5-10.1) mg/dL Total Bilirubin (0.2-1.0) mg/dL AST (15-37) IU/L ALT (14-63) IU/L Alkaline Phosphatase (46-116) U/L Troponin I < 0.050 (0.000-0.056) ng/mL Total Protein (6.4-8.2) g/dL Albumin (3.4-5.0) g/dL Globulin (2.6-4.0) g/dL Albumin/Globulin Ratio (0.9-1.6) Meds: Medications Generic Name Dose Route Start Last Admin Trade Name Freq PRN Reason Stop Dose Admin Sodium Chloride 10 ml 04/10/19 13:01 Saline Flush FLUSH ASDIRECTED PRN Keep Vein Open Sodium Chloride 2.5 ml 04/10/19 13:01 Saline Flush FLUSH ASDIRECTED PRN Keep Vein Open Discontinued Medications Generic Name Dose Route Start Last Admin Trade Name Freq PRN Reason Stop Dose Admin Iopamidol 75 ml 04/10/19 14:59 04/10/19 15:00 Isovue Multipack-370 (76%) IVPUSH 04/10/19 15:00 75 ml ONETIME ONE Administration Potassium Chloride 20 meq 04/10/19 14:45 04/10/19 15:05 Klor-Con M20 PO 04/10/19 14:46 Not Given ONETIME ONE - Re-Assessments/Exams Free Text/Narrative Re-Assessment/Exam: 04/10/19 17:47 On reassessment the patient once again denied ever having any chest pain today. He has been asymptomatic in the ER. Denied abdominal pain. No vomiting is tolerating p.o.. Patient is pain-free in no distress actually joking with me. We did tropes x2 which were negative. A chest x-ray that showed nothing acute. CT abdomen pelvis was also without anything acute. Patient will follow-up with his regular physician regarding his low potassium, he is already getting potassium supplemented by his regular doctor his EKG did not show any hyperkalemic changes. His EKG showed A. fib which is known to him. Departure - Departure Time of Disposition: 17:51 Disposition: Home, Self-Care 01 Clinical Impression: Abdominal pain - Discharge Information Instructions: Abdominal Pain, Adult Referrals: Vadim Romero MD [Primary Care Provider] - Forms: ED Department Discharge Additional Instructions: Return to ED if develop chest pain, shortness of breath, abdominal pain, vomiting, fever or any concerns. The following information is given to patients seen in the emergency department who are being discharged to home. This information is to outline your options for follow-up care. We provide all patients seen in our emergency department with a follow-up referral. The need for follow-up, as well as the timing and circumstances, are variable depending upon the specifics of your emergency department visit. If you don't have a primary care physician on staff, we will provide you with a referral. We always advise you to contact your personal physician following an emergency department visit to inform them of the circumstance of the visit and for follow-up with them and/or the need for any referrals to a consulting specialist. The emergency department will also refer you to a specialist when appropriate. This referral assures that you have the opportunity for follow-up care with a specialist. All of these measure are taken in an effort to provide you with optimal care, which includes your follow-up. Under all circumstances we always encourage you to contact your private physician who remains a resource for coordinating your care. When calling for follow-up care, please make the office aware that this follow-up is from your recent emergency room visit. If for any reason you are refused follow-up, please contact the [facility] Emergency Department at and asked to speak to the emergency department charge nurse. Follow-up with your regular doctor, follow-up your potassium with your regular doctor. Sepsis Event Note - Evaluation Sepsis Screening Result: No Definite Risk - Focused Exam Vital Signs: Vital Signs Temp Pulse Resp BP Pulse Ox 04/10/19 12:51 97 F 87 24 H 187/104 H 96 Date Exam was Performed: 04/10/19 Time Exam was Performed: 17:53 - My Orders Last 24 Hours: My Active Orders 04/10/19 13:00 EKG Documentation Completion [RC] STAT 04/10/19 13:01 Cardiac Monitoring [RC] . DIRECTED Sodium Chloride 0.9% [Saline Flush] 10 ml FLUSH ASDIRECTED PRN Sodium Chloride 0.9% [Saline Flush] 2.5 ml FLUSH ASDIRECTED PRN Saline Lock Insert [OM.PC] Stat - Assessment/Plan Last 24 Hours: My Active Orders 04/10/19 13:00 EKG Documentation Completion [RC] STAT 04/10/19 13:01 Cardiac Monitoring [RC] . DIRECTED Sodium Chloride 0.9% [Saline Flush] 10 ml FLUSH ASDIRECTED PRN Sodium Chloride 0.9% [Saline Flush] 2.5 ml FLUSH ASDIRECTED PRN Saline Lock Insert [OM.PC] Stat
[2019-04-10] MEDS ORDERED: Iopamidol 755 MG/ML 200 ML Multipack Bottle IVPUSH ONE (14:59)
--- NOTE | 2019-04-10 15:17 | CT ---
CT abdomen and pelvis Technique: Multiple axial sections were obtained from above the dome of the diaphragm inferiorly through the pubic symphysis. Intravenous contrast was utilized. No oral contrast has been given. Comparison: No prior abdominal imaging is available. Findings: Small left-sided pleural effusion is noted. Mild atelectasis within the left lung base is also noted. Liver shows no focal abnormality. Spleen appears within normal limits. Heart is enlarged. Adrenal glands show no nodule. Pancreas appears within normal limits. Gallbladder contains no calcified gallstones. Several small low-density findings are seen within the left kidney believed to represent a small cysts. Larger cyst is also seen within the left kidney measuring 3.9 cm. Areas of cortical thinning are noted within the right kidney. Aorta shows atherosclerotic change which continues into the iliac vessels. No aneurysm is seen. No retroperitoneal adenopathy is noted. No pelvic mass or adenopathy is seen. Small fat-containing bilateral inguinal hernias are noted. No free fluid or inflammatory change is appreciated. Appendix is not seen with certainty. Bone window settings were reviewed which shows scattered degenerative change within the spine. No acute osseous finding is appreciated. Impression: 1. Small left-sided pleural effusion and cardiomegaly. 2. Other findings believed to be incidental. 3. Nothing acute is seen. Diagnostic code #2 This report was dictated in [place] Standard Time
== END 2019-04-10 18:07 | disposition home or self-care (01) ==
LOC: MW.ED 12:49
DX: R10.9 Unspecified abdominal pain (principal); I48.91 Unspecified atrial fibrillation; I10 Essential (primary) hypertension; Z79.82 Long term (current) use of aspirin; Z79.899 Other long term (current) drug therapy
CPT/HCPCS: 36415; 71045; 74177; 80053; 84484; 85025; 85610; 93005; 99285; Q9967; 99284

== ENCOUNTER 2021-03-07 14:19 | Inpatient (IN) | payer MEDICARE, OTHER ==
[2021-03-07] MEDS ORDERED: Albuterol/Ipratropium 3.0-0.5 MG/3 ML Neb Soln NEB ONE ×3 (16:42)
[2021-03-07 18:08] LABS: BLOOD UREA NITROGEN,BUN 22 mg/dL (7.0-18.0); CARBON DIOXIDE,CO2 30.5 mmol/L (21.0-32.0); CHLORIDE,CL 100 mmol/L (98-107); GLUCOSE RANDOM 146 mg/dL (74-106); POTASSIUM,K 3.8 mmol/L (3.5-5.1); SODIUM,NA 139 mmol/L (136-148)
[2021-03-07] MEDS ORDERED: Erythromycin Base 0.5% Ophth Oint 1 GM Tube EYEBOTH ONE (18:12)
[2021-03-07] MEDS ORDERED: methylPREDNISolone Sodium Succinate 40 MG/1 ML SDV IVPUSH ONE (18:34)
[2021-03-07] MEDS ORDERED: Furosemide 40 MG/4 ML VIAL IVPUSH STA (19:09)
[2021-03-08] MEDS ORDERED: 50% Dextrose in Water 50 ML Syringe IVPUSH PRN (00:16)
[2021-03-08] MEDS ORDERED: Glucagon,Human Recombinant 1 MG Vial IM PRN (00:16)
[2021-03-08] MEDS: Benzonatate 100 MG Cap PO PRN ×2 (03:10→20:28)
[2021-03-08] MEDS: Insulin Aspart 100 Units/ML 3 ML Pen SUBCUT SCH ×3 (07:53→17:42)
[2021-03-08 07:57] LABS: POTASSIUM,K 3.8 mmol/L (3.5-5.1)
[2021-03-08 08:30] LABS: HEMOGLOBIN A1C 6.3 %
[2021-03-08] MEDS ORDERED: Apixaban 5 MG Tab PO SCH (09:00)
[2021-03-08] MEDS ORDERED: Metoprolol Succinate 25 MG Tab.ER PO SCH (09:00)
[2021-03-08] MEDS: Dutasteride 0.5 MG Cap PO SCH (09:22)
[2021-03-08] MEDS: Potassium Chloride 10 MEQ Tab.ER PO SCH (09:22)
[2021-03-08] MEDS: Doxazosin 4 MG Tab PO SCH (09:22)
[2021-03-08] MEDS: Losartan 50 MG Tab PO SCH (09:23)
[2021-03-08] MEDS: Furosemide 40 MG/4 ML VIAL IVPUSH SCH ×2 (09:23→20:29)
[2021-03-08] MEDS: Clopidogrel 75 MG Tab PO SCH (09:23)
[2021-03-08] MEDS: Albuterol/Ipratropium 3.0-0.5 MG/3 ML Neb Soln NEB PRN ×2 (09:55→20:28)
[2021-03-08] MEDS: Apixaban 5 MG Tab PO SCH (20:29)
[2021-03-09] MEDS: Insulin Aspart 100 Units/ML 3 ML Pen SUBCUT SCH ×3 (06:40→17:13)
[2021-03-09 06:54] LABS: CARBON DIOXIDE,CO2 33.7 mmol/L (21.0-32.0); POTASSIUM,K 3.3 mmol/L (3.5-5.1)
[2021-03-09] MEDS ORDERED: Potassium Chloride 20 MEQ Tab.ER PO ONE ×2 (07:59→14:00)
[2021-03-09] MEDS: Losartan 50 MG Tab PO SCH (09:13)
[2021-03-09] MEDS: Potassium Chloride 10 MEQ Tab.ER PO SCH (09:13)
[2021-03-09] MEDS: Clopidogrel 75 MG Tab PO SCH (09:14)
[2021-03-09] MEDS: Doxazosin 4 MG Tab PO SCH (09:14)
[2021-03-09] MEDS: Apixaban 5 MG Tab PO SCH ×2 (09:14→21:46)
[2021-03-09] MEDS: Furosemide 40 MG/4 ML VIAL IVPUSH SCH ×3 (09:46→21:46)
[2021-03-09] MEDS: Dutasteride 0.5 MG Cap PO SCH ×2 (11:04→22:58)
[2021-03-09] MEDS: UMECLIDIN INH SCH (12:56)
[2021-03-09] MEDS: FLUTICASONE INH SCH (12:56)
[2021-03-09] MEDS: VILANTEROL INH SCH (12:56)
[2021-03-10] MEDS: Furosemide 40 MG/4 ML VIAL IVPUSH SCH ×3 (05:46→21:05)
[2021-03-10 07:36] LABS: CARBON DIOXIDE,CO2 33.7 mmol/L (21.0-32.0); POTASSIUM,K 3.2 mmol/L (3.5-5.1)
[2021-03-10] MEDS: Insulin Aspart 100 Units/ML 3 ML Pen SUBCUT SCH ×3 (07:46→17:27)
[2021-03-10] MEDS: Clopidogrel 75 MG Tab PO SCH (09:08)
[2021-03-10] MEDS: Losartan 50 MG Tab PO SCH (09:09)
[2021-03-10] MEDS: Dutasteride 0.5 MG Cap PO SCH (09:09)
[2021-03-10] MEDS: Apixaban 5 MG Tab PO SCH ×2 (09:09→21:04)
[2021-03-10] MEDS: Doxazosin 4 MG Tab PO SCH (09:10)
[2021-03-10] MEDS: Potassium Chloride 20 MEQ Tab.ER PO SCH ×2 (09:11→17:14)
[2021-03-10] MEDS: UMECLIDIN INH SCH (09:15)
[2021-03-10] MEDS: FLUTICASONE INH SCH (09:15)
[2021-03-10] MEDS: VILANTEROL INH SCH (09:15)
[2021-03-10] MEDS: Metoprolol Succinate 25 MG Tab.ER PO SCH (12:25)
[2021-03-11] MEDS: Furosemide 40 MG/4 ML VIAL IVPUSH SCH ×3 (05:20→21:09)
[2021-03-11 07:58] LABS: CARBON DIOXIDE,CO2 34.5 mmol/L (21.0-32.0); POTASSIUM,K 3.1 mmol/L (3.5-5.1)
[2021-03-11] MEDS: Doxazosin 4 MG Tab PO SCH (09:32)
[2021-03-11] MEDS: Apixaban 5 MG Tab PO SCH ×2 (09:32→21:09)
[2021-03-11] MEDS: Metoprolol Succinate 25 MG Tab.ER PO SCH (09:33)
[2021-03-11] MEDS: Losartan 50 MG Tab PO SCH (09:33)
[2021-03-11] MEDS: Potassium Chloride 20 MEQ Tab.ER PO SCH ×3 (09:34→17:09)
[2021-03-11] MEDS: Clopidogrel 75 MG Tab PO SCH (09:34)
[2021-03-11] MEDS: FLUTICASONE INH SCH (09:47)
[2021-03-11] MEDS: UMECLIDIN INH SCH (09:47)
[2021-03-11] MEDS: VILANTEROL INH SCH (09:47)
[2021-03-11] MEDS: Dutasteride 0.5 MG Cap PO SCH (11:24)
[2021-03-11] MEDS: Insulin Aspart 100 Units/ML 3 ML Pen SUBCUT SCH ×3 (12:29→17:59)
[2021-03-11] MEDS: Levofloxacin 750 MG Tab PO SCH (14:13)
[2021-03-12] MEDS: Furosemide 40 MG/4 ML VIAL IVPUSH SCH ×2 (06:00→14:05)
[2021-03-12] MEDS: Insulin Aspart 100 Units/ML 3 ML Pen SUBCUT SCH ×3 (07:23→18:13)
[2021-03-12 07:44] LABS: CARBON DIOXIDE,CO2 33.6 mmol/L (21.0-32.0)
[2021-03-12 07:53] LABS: POTASSIUM,K 3.6 mmol/L (3.5-5.1)
[2021-03-12] MEDS: Metoprolol Succinate 25 MG Tab.ER PO SCH (09:36)
[2021-03-12] MEDS: Losartan 50 MG Tab PO SCH (09:36)
[2021-03-12] MEDS: Apixaban 5 MG Tab PO SCH ×2 (09:36→21:15)
[2021-03-12] MEDS: Potassium Chloride 20 MEQ Tab.ER PO SCH ×3 (09:36→17:05)
[2021-03-12] MEDS: Dutasteride 0.5 MG Cap PO SCH (09:36)
[2021-03-12] MEDS: Clopidogrel 75 MG Tab PO SCH (09:37)
[2021-03-12] MEDS: Doxazosin 4 MG Tab PO SCH (09:37)
[2021-03-12] MEDS: FLUTICASONE INH SCH (09:38)
[2021-03-12] MEDS: VILANTEROL INH SCH (09:38)
[2021-03-12] MEDS: UMECLIDIN INH SCH (09:38)
[2021-03-13 07:59] LABS: CARBON DIOXIDE,CO2 31.3 mmol/L (21.0-32.0); POTASSIUM,K 3.9 mmol/L (3.5-5.1)
[2021-03-13] MEDS: Insulin Aspart 100 Units/ML 3 ML Pen SUBCUT SCH ×2 (08:13→11:58)
[2021-03-13] MEDS: Potassium Chloride 20 MEQ Tab.ER PO SCH ×2 (08:20→13:29)
[2021-03-13] MEDS: Losartan 50 MG Tab PO SCH (08:20)
[2021-03-13] MEDS: Doxazosin 4 MG Tab PO SCH (08:20)
[2021-03-13] MEDS: Clopidogrel 75 MG Tab PO SCH (08:20)
[2021-03-13] MEDS: Metoprolol Succinate 25 MG Tab.ER PO SCH (08:21)
[2021-03-13] MEDS: Apixaban 5 MG Tab PO SCH (08:21)
[2021-03-13] MEDS: Furosemide 40 MG/4 ML VIAL IVPUSH SCH (08:21)
[2021-03-13] MEDS: FLUTICASONE INH SCH (08:26)
[2021-03-13] MEDS: UMECLIDIN INH SCH (08:26)
[2021-03-13] MEDS: VILANTEROL INH SCH (08:26)
[2021-03-13] MEDS: Dutasteride 0.5 MG Cap PO SCH (09:07)
[2021-03-13] MEDS: Levofloxacin 750 MG Tab PO SCH (13:29)
== END 2021-03-13 13:30 | disposition home or self-care (01) | DRG 291 ==
LOC: MW.ED 14:19 → MW.MS 18:49
PROVIDERS: ADMIT Internal Medicine; ATTEND Internal Medicine
DX: R05.8 Other specified cough (principal); I50.33 Acute on chronic diastolic (congestive) heart failure; J18.9 Pneumonia, unspecified organism; I48.19 Other persistent atrial fibrillation; E78.5 Hyperlipidemia, unspecified; R73.03 Prediabetes; J44.1 Chronic obstructive pulmonary disease with (acute) exacerbation; H91.90 Unspecified hearing loss, unspecified ear; I50.9 Heart failure, unspecified; H91.93 Unspecified hearing loss, bilateral; E66.9 Obesity, unspecified; I25.10 Atherosclerotic heart disease of native coronary artery without angina pectoris; Z91.14 Patient's other noncompliance with medication regimen; Z79.01 Long term (current) use of anticoagulants; I48.91 Unspecified atrial fibrillation; Z90.49 Acquired absence of other specified parts of digestive tract; Z87.891 Personal history of nicotine dependence; E78.00 Pure hypercholesterolemia, unspecified; I11.0 Hypertensive heart disease with heart failure; N40.0 Benign prostatic hyperplasia without lower urinary tract symptoms; Z79.82 Long term (current) use of aspirin; Z79.899 Other long term (current) drug therapy; Z20.822 Contact with and (suspected) exposure to COVID-19
CPT/HCPCS: 36415; 71045; 80053; 83605; 83735; 83880; 84484; 85025; 85610; 87804 ×2; 93005; 99285; A9270; U0002; 71046; 71046-26; 80048; 81001; 82947; 83036; 84100; 93306; 94640; 97161-GP; 97530-GP; J1815-GY; J1940; J2920; J7620-GY